=== PATIENT | male | born 1935 | race Caucasian/White ===

== ENCOUNTER 2017-05-01 18:47 | Inpatient (IN) ==
[2017-05-01] MEDS ORDERED: ALBUTEROL/IPRATROPIUM 3 ML NEB RESP TX STA (19:43)
[2017-05-01] MEDS ORDERED: METOCLOPRAMIDE 10 MG/2 ML VIAL IV STA (19:43)
[2017-05-01] MEDS ORDERED: PANTOPRAZOLE 40 MG VIAL IV STA (19:43)
[2017-05-01 19:45] LABS: Basophils # 0.1 10*3/uL (0.0-0.2); Basophils % 0.4 % (0.0-0.8); Eosinophils # 0.1 10*3/uL (0.0-0.87); Eosinophils % 0.3 % (0.00-10.9); Hematocrit 35.6 VOL% (42.0-52.0); Hemoglobin 12.6 GM/DL (14.0-18.0); Immature Granulocytes % 1.3 %; Lymphocytes # 0.8 10*3/uL (1.4-4.0); Lymphocytes % 4.7 % (21.2-54.2); Mean Corpuscular HGB Conc 35.4 GM/DL (32-36); Mean Corpuscular Hemoglobin 31 PG (27-34); Mean Corpuscular Volume 86.8 FL (87-102); Mean Platelet Volume 9.3 FL (9.6-12.0); Monocytes # 1.3 10*3/uL (0.11-0.8); Monocytes % 8.3 % (1.7-12.7); Neutrophils # 13.6 10*3/uL (1.4-7.4); Platelet Count 321 T/CUMM (130-400); Red Cell Distribution Width 12.6 % (9.3-17.3)
--- NOTE | 2017-05-01 19:46 | Emergency Department Note ---
Arrival - Arrival Chief Complaint: Shortness of Breath Stated Complaint: Cant Breathe,Chest Pain ED Nursing Triage Note: C/C short of breath for several days, worse when laying and exertion. CHest pain that started after nistatin meds were completed. Mode of Arrival: Wheelchair Limitations: No Limitations Source: Patient, Family Time Seen by Provider: 05/01/17 19:41 - History of Present Illness HPI Narrative: This 81-year-old white male presents with abrupt progressive shortness of breath worse when laying down or exerting himself. Associated with this has been wheezing and increased midepigastric pain of his chronic reflux disease. In fact, the patient had a new drug given to him yesterday by Dr. Moseley for his reflux and he has some concerned that this is made matters worse. However, he does not have a history of COPD and asthma nor does he have a history of congestive heart failure. Prior to 3 days ago he has never experienced symptoms such as this. In this regard he denies hemoptysis, chills, fever, sputum production, or pleuritic type chest pain. Currently he appears uncomfortable but in no acute medical distress. Onset (ago): day(s) (Patient presents 3 days post onset of symptoms) Allergies/Adverse Reactions: Allergies Allergy/AdvReac Type Severity Reaction Status Date / Time gabapentin [From Neurontin] Allergy Severe Diarrhea Verified 05/01/17 19:05 latex AdvReac Redness of Verified 05/01/17 19:05 Skin Home Medications: Home Medications Medication Instructions Recorded Confirmed Type Amitriptyline [Elavil] 50 mg PO BEDTIME 11/30/16 05/01/17 History Carvedilol 6.25 mg PO BID 11/30/16 05/01/17 History Chlorthalidone 25 mg PO QAM 11/30/16 05/01/17 History Finasteride 5 mg PO QPM 11/30/16 05/01/17 History Pantoprazole Tab [Protonix Tab] 40 mg PO BID 11/30/16 05/01/17 History Tamsulosin [Flomax] 0.4 mg PO PC SUPPER 11/30/16 05/01/17 History amLODIPine [Norvasc] 5 mg PO BID 11/30/16 05/01/17 History Acetaminophen Tab [Tylenol Tab] 325 - 650 mg PO QOTHER DAY PRN 03/30/17 History Docusate Sodium 100 mg PO BEDTIME 03/30/17 05/01/17 History Multivitamin [Multivitamins] 1 each PO QAM 03/30/17 05/01/17 History Sucralfate Tab [Carafate Tab] 1 gm PO QID 05/01/17 05/01/17 History Review of System - Review of System 12 point system: reviewed and no additional remarkable complaints except as stated - Review of System Constitutional: Present: as per HPI Respiratory: Present: as per HPI Cardiovascular: Present: as per HPI Gastrointestinal: Present: as per HPI Medical,Surgical,& Family Hx - Medical History Cardio: History of: CHF, Hypertension Neurology: History of: TIA Endocrine: No history of: Diabetes Mellitus (IDDM), Diabetes Mellitus (NIDDM) Respiratory: History of: Respiratory Problems (left lung calcification 3.5cm) Genitourinary: History of: Prostate Problems (enlarged) Gastrointestinal: History of: GERD, GI Problems (Hital hernia) Musculoskeletal: History of: Back/Neck Problems (spinal stenosis/scoliosis), Musculoskeletal Problems (feet, left knee) - Surgical History Cardiac Surgeries: Patient Denies: Cardiac Catheterization Orthopedic Surgeries: Surgical HX of;: Orthopedic Surgery (left ankle metal plate) - Social History Smoking Status: Never smoker Frequency of Alcohol Use: None Type of Drug Use: None Exam Physical Examination: GENERAL: Well developed, well nourished elderly white male in no acute distress. HEENT: Normocephalic. No trauma. Moist mucous membranes. EOMI. PERRLA. ENT NML NECK: Supple. No adenopathy. CARDIAC: Regular. No murmurs. Heart rate 84 CHEST: Rare expiratory wheeze. No respiratory distress. O2 sat 96% ABDOMEN: Soft. Midepigastric tenderness. Active bowel sounds. EXTREMITIES: No trauma. Normal ROM. No pedal edema. SKIN: No diaphoresis. No rash. NEURO: Alert. Neuro intact. No focal deficits. Vital Signs: Vital Signs Temperature 97.9 F 05/01/17 18:59 Pulse Rate 72 05/01/17 20:17 Respiratory Rate 18 05/01/17 20:17 Blood Pressure 172/90 05/01/17 18:59 O2 Sat by Pulse Oximetry 99 05/01/17 20:17 Course - Reevaluation(s) Reevaluation #1: Advised patient of evidence of early failure and super infecting bronchitis. For that reason he will be admitted. - Consultations Consultation #1: Discussed with Dr. Moseley who will admit for further evaluation treatment. Results - Labs CBC & BMP: 05/01/17 19:25 05/01/17 19:25 Labs: I reviewed the laboratory and noted the borderline sodium low potassium and elevated white blood cell count. - Diagnostic Findings Procedure: Chest x-ray: image reviewed by me, report reviewed by me ( Cardiomegaly otherwise no acute changes), CT: image reviewed by me, report reviewed by me (No evidence of PTE but evidence of interstitial edema) Disposition Clinical Impression: Pulmonary edema, Bacterial bronchitis Case discussed with: patient, patient's family Disposition: Still a Patient Condition: Guarded Time of Disposition: 23:01
--- NOTE | 2017-05-01 19:59 | XRay Report ---
Exam: XR chest 1V portable Date: 05/01/2017 7:15 PM Indication: Chest pain Comparison: 03/30/2017 Technical: AP Findings: Cardiomegaly is present with a calcified node in the left perihilar region measuring up to approximately 3.6 cm. External cardiac leads oxygen tubing are present. ASVD is present. No obvious pneumothorax or infiltrates or effusions. Impression: 1. Cardiomegaly 2. No acute cardiopulmonary pathology with underlying calcified nodes in the left perihilar region PROCEDURE INTERPRETED AT [facility] DEPARTMENT OF RADIOLOGY Final Report Signed by: Dr. Jacob Alvarado
[2017-05-01 20:03] LABS: Magnesium 1.9 MG/DL (1.8-2.4)
[2017-05-01 20:04] LABS: Albumin 3.5 G/DL (3.4-5.0); Bilirubin,Total 1.3 MG/DL (0.2-1.0); Calcium 8.8 MG/DL (8.5-10.1); Osmolality,Calculated 256.4 MOS/KG (273-304); Potassium 3.3 MMOL/L (3.5-5.1); Total Protein 6.9 G/DL (6.4-8.3)
[2017-05-01 20:05] LABS: INR 1.1; PT Patient Result 11.8 SECS; Partial Thromboplastin Time 37.2 SECS (0-40)
[2017-05-01 20:06] LABS: Troponin I Only 0.015 NG/ML (0.00-0.045)
[2017-05-01] MEDS ORDERED: PANTOPRAZOLE 40 MG VIAL IV ONE (20:06)
[2017-05-01] MEDS ORDERED: METOCLOPRAMIDE 10 MG/2 ML VIAL ONE (20:06)
[2017-05-01 20:10] LABS: Lymphocytes 5 % (20-55); Platelet Estimate Normal; Segmented Neutrophils 88 % (50-85); Total Cells Counted 100
[2017-05-01] MEDS ORDERED: POTASSIUM BICARB EFFERVESCENT 25 MEQ TABLET PO ONE ×2 (20:50→23:32)
[2017-05-01 22:19] LABS: Apearance,Urine CLEAR (Clear); Bilirubin,Urine Negative (Negative); Blood, Urine Negative (Negative); Glucose,Urine (UA) Negative (Negative); Hyaline Casts,Urine 1 /LPF (0-3); Ketones,Urine 5 mg/dL (Negative); Mucus,Urine Occasional /LPF (Occasional); Nitrite,Urine Negative (Negative); Protein,Urine 100 MG/DL; RBC,Urine <1 /HPF (0-4); Urine Color Yellow (Yellow); Urine Specific Gravity 1.018 (1.001-1.035); Urine Urobilinogen < 2.0 EU/DL (0.2-1.0); WBC,Urine <1 /HPF (0-6)
[2017-05-01] MEDS ORDERED: LEVOFLOXACIN INJ 750 MG in PREMIX 1 EACH IV STA (22:34)
[2017-05-01] MEDS ORDERED: ONDANSETRON 4 MG/2 ML VIAL IV PRN (23:02)
[2017-05-01] MEDS ORDERED: LEVOFLOXACIN INJ 150 ML IV ONE (23:32)
[2017-05-02] MEDS: ALBUTEROL/IPRATROPIUM 3 ML NEB RESP TX PRN ×2 (01:45→21:20)
[2017-05-02] MEDS: LEVOFLOXACIN INJ 750 MG in PREMIX 1 EACH IV SCH (01:49)
--- NOTE | 2017-05-02 06:46 | CT Report ---
Exam: CT chest PE study Date: 05/01/2017 8:49 PM Indication: Acute shortness of breath Comparison: Routine chest Technical: Images were obtained from the thoracic inlet through the lung bases with 80 cc of Omnipaque 350 with axial and coronal imaging available for review. Dose reduction was performed with decreasing kv and mA and automated exposure. 3-D MIP images were obtained Findings: The study was initially reviewed by C.. The pulmonary outflow tract, left and right proximal pulmonary arteries, first-order, second-order and third order branches reveal no evidence of pulmonary thromboemboli. The heart is normal in size. Minimal atherosclerotic plaque in the aorta. The lungs are demonstrated with left base pleural effusion atelectatic change with small right pleural effusion also present. Calcified nodes are present in the left aortopulmonic window hilar region. There is a soft tissue density mass in the anterior mediastinum measuring approximate 7 cm x 3 x 7 cm. Scarring is present in the lung bases posteriorly. The bony structures are demonstrated with degenerative spondylosis change present and compression deformity in the lower thoracic lumbar spine junction with the area of vertebral plana suspected in the lowest level. The liver is unremarkable. Spleen reveals granuloma changes. The gallbladder is slightly distended. The pancreas is intact. The adrenal glands are unremarkable. Kidneys are poorly seen. Stomach is incompletely distended Impression: 1. No evidence of pulmonary thromboemboli. 2. 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 Bilateral basilar effusions and atelectatic change minimal pneumonic infiltrate cannot be excluded 4. Calcified mediastinal mass left hilar region measuring up to 3.6 cm 5. Multiple compression fractures lower thoracic upper lumbar spine area. 6. Slightly distended gallbladder without obvious stones 7. Underlying interstitial edema or mild interstitial fibrotic scarring. PROCEDURE INTERPRETED AT [facility] DEPARTMENT OF RADIOLOGY Final Report Signed by: Dr. Jacob Alvarado
--- NOTE | 2017-05-02 06:54 | EKG Report ---
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
[2017-05-02] MEDS: FUROSEMIDE 40 MG/4 ML VIAL IV SCH ×2 (09:03→17:39)
[2017-05-02] MEDS: PANTOPRAZOLE 40 MG TABLET PO SCH ×3 (09:03→22:10)
[2017-05-02] MEDS: CARVEDILOL 6.25 MG TABLET PO SCH ×2 (09:03→22:10)
[2017-05-02] MEDS: POTASSIUM CHLORIDE 20 MEQ TABLET PO SCH (09:03)
[2017-05-02] MEDS: FINASTERIDE 5 MG TABLET PO SCH (09:03)
[2017-05-02] MEDS: TAMSULOSIN 0.4 MG CAPSULE PO SCH (09:03)
--- NOTE | 2017-05-02 09:07 | EKG Report ---
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
[2017-05-02 09:18] LABS: Basophils # 0.1 10*3/uL (0.0-0.2); Basophils % 0.4 % (0.0-0.8); Eosinophils # 0.1 10*3/uL (0.0-0.87); Eosinophils % 0.4 % (0.00-10.9); Hematocrit 34.5 VOL% (42.0-52.0); Hemoglobin 12.1 GM/DL (14.0-18.0); Immature Granulocytes % 1.3 %; Lymphocytes # 0.9 10*3/uL (1.4-4.0); Lymphocytes % 5.9 % (21.2-54.2); Mean Corpuscular HGB Conc 35.1 GM/DL (32-36); Mean Corpuscular Hemoglobin 31 PG (27-34); Mean Corpuscular Volume 88.2 FL (87-102); Mean Platelet Volume 9.4 FL (9.6-12.0); Monocytes # 1.5 10*3/uL (0.11-0.8); Neutrophils # 12.3 10*3/uL (1.4-7.4); Platelet Count 299 T/CUMM (130-400); Red Blood Count 3.91 MC/CUMM (3.8-5.5); Red Cell Distribution Width 12.5 % (9.3-17.3); White Blood Count 15.1 T/CUMM (4-12)
--- NOTE | 2017-05-02 09:30 | Internal Med History&Physical ---
Assessment and Plan (1) Shortness of breath Status: Acute Assessment and plan: 81-year-old male admitted to acute care * Shortness of breath. This has been going on for 3 days. It is associated with orthopnea and a cough. Differential diagnosis includes CHF and or pneumonia. * New onset A. fib. This appears to be new onset. His ventricular rate is relatively controlled. Will check echocardiogram on the patient. We will also check BNP and consult cardiology to evaluate the patient. Will check TSH and magnesium * Anterior mediastinal mass. Will consult pulmonary medicine to evaluate patient. He may need biopsy * Severe GERD. Continue current treatment. Will consult podiatry for the diet recommendation * Hypertension. Blood pressure is stable * Chronic back pain. Stable * Hyponatremia and hypokalemia. Will hold Lasix. Potassium will be replaced. * Discussed with patient and his grandson Current Visit: Yes (2) Mediastinal mass Status: Acute Current Visit: Yes (3) New onset a-fib Status: Acute Current Visit: Yes (4) CHF (congestive heart failure) Status: Acute Current Visit: Yes (5) Hypertension Status: Acute Current Visit: Yes (6) GERD (gastroesophageal reflux disease) Status: Acute Current Visit: Yes History of Present Illness Chief complaint: Shortness of breath. History of present illness: Mr. Chatman is a 81 year old male with history of GERD, spinal stenosis, chronic low back pain, hypertension and osteoarthritis. He presented to the emergency room with 3 day history of shortness of breath on minimal exertion along with orthopnea. He had difficulty lying down without getting short of breath. He also had some mid epigastric pain. He has history of severe reflux. He denies any chest pain. He describes it as a reflux type pain. Denies any fever or chills. He denies any nausea or vomiting. Patient was evaluated in the emergency room with a CT PE. It showed 7 cm left anterior superior mediastinal mass. Patient was also found to be in A. fib. Patient has been having pain off and on for several weeks. He went to the emergency room last month. Patient denies any history of smoking Home Medications Medication Instructions Recorded Confirmed Type Amitriptyline [Elavil] 50 mg PO BEDTIME 11/30/16 05/01/17 History Carvedilol 6.25 mg PO BID 11/30/16 05/01/17 History Chlorthalidone 25 mg PO QAM 11/30/16 05/01/17 History Finasteride 5 mg PO QPM 11/30/16 05/01/17 History Pantoprazole Tab [Protonix Tab] 40 mg PO BID 11/30/16 05/01/17 History Tamsulosin [Flomax] 0.4 mg PO PC SUPPER 11/30/16 05/01/17 History amLODIPine [Norvasc] 5 mg PO BID 11/30/16 05/01/17 History Acetaminophen Tab [Tylenol Tab] 325 - 650 mg PO QOTHER DAY PRN 03/30/17 History Docusate Sodium 100 mg PO BEDTIME 03/30/17 05/01/17 History Multivitamin [Multivitamins] 1 each PO QAM 03/30/17 05/01/17 History Sucralfate Tab [Carafate Tab] 1 gm PO QID 05/01/17 05/01/17 History Allergies Allergy/AdvReac Type Severity Reaction Status Date / Time gabapentin [From Neurontin] Allergy Severe Diarrhea Verified 05/01/17 19:05 latex AdvReac Redness of Verified 05/01/17 19:05 Skin Medical,Surgical,& Family Hx - Medical History Cardio: History of: CHF, Hypertension Neurology: History of: TIA Endocrine: No history of: Diabetes Mellitus (IDDM), Diabetes Mellitus (NIDDM) Respiratory: History of: Respiratory Problems (left lung calcification 3.5cm) Genitourinary: History of: Prostate Problems (enlarged) Gastrointestinal: History of: GERD, GI Problems (Hital hernia) Musculoskeletal: History of: Back/Neck Problems (spinal stenosis/scoliosis), Musculoskeletal Problems (feet, left knee) - Surgical History Cardiac Surgeries: Patient Denies: Cardiac Catheterization Thoracic Surgeries: Patient denies;: Organ Transplant Orthopedic Surgeries: Surgical HX of;: Orthopedic Surgery (left ankle metal plate) - Family History Family History: Reports;: Family Heart Disease, Family Stroke - Social History Smoking Status: Never smoker Frequency of Alcohol Use: None Type of Drug Use: None Marital Status: Lives With:: Spouse Functional capacity: uses cane/walker 12 point system: reviewed and no additional remarkable complaints except as stated (As mentioned in HPI) Exam - Constitutional Vitals: Period Temp Pulse Resp BP Sys/Bah Pulse Ox Last 24 Hr 96.7 F-98.4 F 65-86 18-24 118-172/64-93 95-99 Exam: Examination: GENERAL: NAD. HEENT: PERRLA. EOMI. Mucous membranes are moist. NECK: Neck is supple. No JVD. No carotid bruit. No thyromegaly. CVS: Regular rate and rhythm. S1 and S2 are normal. RESPIRATORY: Lungs are clear. No rales or rhonchi. ABDOMEN: Soft and nontender. Bowel sounds are present. No hepatosplenomegaly. EXT: No edema. Peripheral pulses are present. 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 Cranial nerves II through XII are grossly intact. Motor strength is 5 over 5 both upper and lower extremities. Sensory is intact. Deep tendon reflexes are present. SKIN: Warm and dry. MSK: No obvious deformity. Chronic arthritic changes in her back Results - Labs CBC & BMP: 05/02/17 08:31 05/01/17 19:25 Lab Results: I have reviewed the past 24 hour labs Quality Measures - Stroke Symptom Onset Unknown: No
--- NOTE | 2017-05-02 11:48 | Pulmonology Consult Note ---
Assessment and Plan (1) Mediastinal mass Status: Acute Assessment and plan: Difficult to tell how long this has been present as it would not be visible on plain chest x-ray. I do not think he is having any symptoms referable to this area. My suggestion would be to have a thoracic surgeon look at him. He may want to follow it, get it needle biopsied, or do a mediastinoscopy. This is not an area of the chest that I could get to with a bronchoscope. The differential diagnosis for an anterior mediastinal mass would be thymoma, teratoma, substernal thyroid. Of those I think a teratoma would be quite unlikely. The lesion does not appear to be continuous with his thyroid. It does not appear to be adenopathy. I would workup his cardiac situation first as I think this is the primary cause of his symptoms. Ask Dr. Goyal to review the CT and patient on Thursday Current Visit: Yes (2) New onset a-fib Status: Acute Assessment and plan: Being addressed by cardiology. Current Visit: Yes (3) CHF (congestive heart failure) Status: Acute Assessment and plan: Certainly the small pleural effusions, basilar crackles, dyspnea on exertion, orthopnea, elevated BNP of close to 400 all would be suggestive of congestive heart failure. Cardiology is going to work him up to find the cause for this. This should be done prior to any evaluation of the anterior mediastinal mass. Current Visit: Yes History of Present Illness Chief complaint: Shortness of breath History of present illness: Mr. Chatman is a 81 year old male who came in with about 3 days of shortness of breath including wheezing orthopnea and a cough. He was found to have atrial fibrillation. He has a BNP of 393. This been no echo done. His CT scan showed no evidence of a pulmonary embolus but did show small bilateral pleural effusions and some basilar interstitial infiltrate or compression. Incidental finding is an anterior mediastinal mass which measures 3 x 7 x 7 cm. The patient is really not having any pain in this area. It is not visible on plain chest x-ray and it is uncertain how long it has been there. Home Medications Medication Instructions Recorded Confirmed Type Amitriptyline [Elavil] 50 mg PO BEDTIME 11/30/16 05/01/17 History Carvedilol 6.25 mg PO BID 11/30/16 05/01/17 History Chlorthalidone 25 mg PO QAM 11/30/16 05/01/17 History Finasteride 5 mg PO QPM 11/30/16 05/01/17 History Pantoprazole Tab [Protonix Tab] 40 mg PO BID 11/30/16 05/01/17 History Tamsulosin [Flomax] 0.4 mg PO PC SUPPER 11/30/16 05/01/17 History amLODIPine [Norvasc] 5 mg PO BID 11/30/16 05/01/17 History Acetaminophen Tab [Tylenol Tab] 325 - 650 mg PO QOTHER DAY PRN 03/30/17 History Docusate Sodium 100 mg PO BEDTIME 03/30/17 05/01/17 History Multivitamin [Multivitamins] 1 each PO QAM 03/30/17 05/01/17 History Sucralfate Tab [Carafate Tab] 1 gm PO QID 05/01/17 05/01/17 History Allergies Allergy/AdvReac Type Severity Reaction Status Date / Time gabapentin [From Neurontin] Allergy Severe Diarrhea Verified 05/01/17 19:05 latex AdvReac Redness of Verified 05/01/17 19:05 Skin 12 point system: reviewed and no additional remarkable complaints except as stated - Constitutional Constitutional: Present: fatigue - Cardiovascular Cardiovascular: Present: dyspnea, dyspnea on exertion, edema, orthopnea - Respiratory Respiratory: Present: cough, dyspnea, dyspnea on exertion, wheezing Exam (Pulmonay) H&P - Constitutional Vitals: Period Temp Pulse Resp BP Sys/Bah Pulse Ox Last 24 Hr 96.7 F-98.4 F 65-86 18-24 118-172/64-93 95-99 Exam: Patient is alert and oriented. Vital signs are normal. Pulse is somewhat irregular. HEENT: Pupils react to light. Throat is clear. Neck supple no bruits. He does have some mild jugular distention. I do not feel an enlarged thyroid. Chest reveals bibasilar crackles. Heart irregular without murmur. Abdomen soft nontender no masses. Bowel sounds present. Extremities she has trace to 1+ peripheral edema. Calves are nontender. Medical,Surgical,& Family Hx - Medical History Cardio: History of: CHF, Hypertension Neurology: History of: TIA Endocrine: No history of: Diabetes Mellitus (IDDM), Diabetes Mellitus (NIDDM) Respiratory: History of: Respiratory Problems (left lung calcification 3.5cm) Genitourinary: History of: Prostate Problems (enlarged) Gastrointestinal: History of: GERD, GI Problems (Hital hernia) Musculoskeletal: History of: Back/Neck Problems (spinal stenosis/scoliosis), Musculoskeletal Problems (feet, left knee) - Surgical History Cardiac Surgeries: Patient Denies: Cardiac Catheterization Thoracic Surgeries: Patient denies;: Organ Transplant Orthopedic Surgeries: Surgical HX of;: Orthopedic Surgery (left ankle metal plate) - Family History Family History: Reports;: Family Heart Disease, Family Stroke - Social History Smoking Status: Never smoker Frequency of Alcohol Use: None Type of Drug Use: None Results - Labs CBC & BMP: 05/02/17 08:31 05/01/17 19:25 Lab Results: I have reviewed the past 24 hour labs - Diagnostic Findings Procedure: Chest x-ray: image reviewed by me (Calcified left hilar lesion which is old uncertain. Upper mediastinum may be slightly widened.), CT - chest: image reviewed by me (Small bilateral pleural effusions with interstitial infiltrates in the bases. Anterior mediastinal mass. It is very smooth. 7 x 3 x 7 cm it measures.) Quality Measures - Stroke Symptom Onset Unknown: No
[2017-05-02] MEDS: SUCRALFATE 1 GM TABLET PO SCH ×3 (13:57→22:09)
--- NOTE | 2017-05-02 14:05 | Cardiology Consult Note ---
Assessment and Plan (1) Shortness of breath Status: Acute Current Visit: Yes (2) Mediastinal mass Status: Acute Current Visit: Yes (3) New onset a-fib Status: Acute Current Visit: Yes (4) Hypertension Status: Chronic Current Visit: Yes History of Present Illness - Data of Consult Patient: new to practice Consult date: 05/02/17 Requesting Physician: Jacob Sierra - Consult Narrative Reason for consult: A. 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 Chatman is a 81 year old male without a prior cardiac history, with risk factors significant for hypertension and advanced age. He presents with complaints of shortness of breath. He has had a decline in his exercise tolerance with increasing dyspnea on exertion over the preceding couple of months. However, this week his symptoms escalated, such that he became short of breath with performing any activity, so he came to the emergency room for further evaluation and treatment. He does occasionally get a chest discomfort which he attributes to his "hiatal hernia". This seems to be somewhat positional. He is unable to lay recumbent, and has not been able to do this for some time, because he feels short of breath when he does so. He has not necessarily had lower extremity edema. He is not aware of any palpitations. He has not noticed any fevers, chills, cough or other acute illness. He has not had unexplained weight loss. He denies any melena, bright red blood per rectum. Upon admission he is diagnosed with possible atrial fibrillation with a controlled ventricular response. The ECGs are somewhat difficult to discern, but he does seem to have an irregular rhythm. He has also been diagnosed with a mediastinal mass. His BNP is not greater than 400, so was not specific for heart failure. Impression and plan: 1. Shortness of breath-this may be multifactorial. 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 He will need to undergo further cardiac workup with cardiac catheterization given the severity of the symptoms. We are going to need to plan this timing with Dr. Goyal since he will need workup for his mediastinal mass probably. This does not really appear to be a significant heart failure since his BNP is less than 400, and he does not seem to have significant edema on exam. 2. Mediastinal mass-we will consult Dr. Goyal. 3. Atrial fibrillation-I am going to repeat his chest x-ray ECG. We will give him a shot of Lovenox. We will need to determine what his long-term anticoagulation will be. He does have a mild microcytic anemia and we will need to work this up as well. 4. Hypertension-chronic, stable. 5. Anemia-this is mildly microcytic and we will need to work this up if we are considering cardiac catheterization and possible antiplatelet therapy and/or anticoagulation for his atrial fibrillation. I have personally discussed this case with Drs. Kelsey and Jay Jay. CC: Chapito Moseley MD - Home Medications and Allergies Home Medications: Home Medications Medication Instructions Recorded Confirmed Type Amitriptyline [Elavil] 50 mg PO BEDTIME 11/30/16 05/01/17 History Carvedilol 6.25 mg PO BID 11/30/16 05/01/17 History Chlorthalidone 25 mg PO QAM 11/30/16 05/01/17 History Finasteride 5 mg PO QPM 11/30/16 05/01/17 History Pantoprazole Tab [Protonix Tab] 40 mg PO BID 11/30/16 05/01/17 History Tamsulosin [Flomax] 0.4 mg PO PC SUPPER 11/30/16 05/01/17 History amLODIPine [Norvasc] 5 mg PO BID 11/30/16 05/01/17 History Acetaminophen Tab [Tylenol Tab] 325 - 650 mg PO QOTHER DAY PRN 03/30/17 History Docusate Sodium 100 mg PO BEDTIME 03/30/17 05/01/17 History Multivitamin [Multivitamins] 1 each PO QAM 03/30/17 05/01/17 History Sucralfate Tab [Carafate Tab] 1 gm PO QID 05/01/17 05/01/17 History Allergies/Adverse Reactions: Allergies Allergy/AdvReac Type Severity Reaction Status Date / Time gabapentin [From Neurontin] Allergy Severe Diarrhea Verified 05/01/17 19:05 latex AdvReac Redness of Verified 05/01/17 19:05 Skin 12 point system: reviewed and no additional remarkable complaints except as stated Medical,Surgical,& Family Hx - Medical History Cardio: History of: Hypertension Neurology: History of: TIA Endocrine: No history of: Diabetes Mellitus (IDDM), Diabetes Mellitus (NIDDM) Respiratory: History of: Respiratory Problems (left lung calcification 3.5cm) Genitourinary: History of: Prostate Problems (enlarged) Gastrointestinal: History of: GERD, GI Problems (Hital hernia) Musculoskeletal: History of: Back/Neck Problems (spinal stenosis/scoliosis), Musculoskeletal Problems (feet, left knee) - Surgical History Cardiac Surgeries: Patient Denies: Cardiac Catheterization Thoracic Surgeries: Patient denies;: Organ Transplant Orthopedic Surgeries: Surgical HX of;: Orthopedic Surgery (left ankle metal plate) - Family History Family History: Reports;: Family Heart Disease, Family Stroke - Social History Smoking Status: Never smoker Frequency of Alcohol Use: None Type of Drug Use: None Marital Status: Lives With:: Spouse Functional capacity: independent ambulation Physical Examination Vital Signs Temp Pulse Resp BP Pulse Ox 97.9 F 86 20 172/90 96 05/01/17 18:59 05/01/17 18:59 05/01/17 18:59 05/01/17 18:59 05/01/17 18:59 Exam: General appearance: normal weight, no acute distress - Head Head exam: Present: normal inspection, normocephalic, atraumatic. Absent: hematoma, laceration - Eye Eye exam: Present: EOMI. Absent: conjunctival injection, nystagmus, periorbital swelling, scleral icterus, laceration to eyelids Pupils: Present: PERRL. Absent: constricted, dilated, fixed, irregular, unequal - ENT ENT exam: Present: normal exam, normal external ear exam - Neck Neck exam: Present: normal inspection. Absent: lymphadenopathy, meningismus, tenderness, thyromegaly - Respiratory Respiratory exam: Present: Crackles in the bilateral bases.. Absent: accessory muscle use, chest wall tenderness - Cardiovascular Cardiovascular exam: Present: Subtly irregularly irregular rate and rhythm. Absent: carotid bruit, gallop, JVD, rubs - GI/Abdominal GI/Abdominal exam: Present: normal bowel sounds, soft. Absent: distended, firm , guarding, hernia, mass, tenderness, rebound. - Extremities Exam Extremities exam: Present: decreased pulses. Absent: calf tenderness, edema - Back Exam Back exam: Present: normal inspection. Absent: muscle spasm, vertebral tenderness - Neurological Exam Neurological exam: Present: alert, oriented X3, grossly intact without resting or intention tremor - Psychiatric Psychiatric exam: Present: normal affect, normal mood - Skin Skin exam: Present: normal color, warm, dry, intact. Absent: cyanosis, diaphoretic, rash, urticaria Result/EKG - Labs CBC & BMP: 05/02/17 08:31 05/01/17 19:25 Lab Results: I have reviewed the past 24 hour labs Labs: Laboratory Results - last 24 hr 05/01/17 05/01/17 05/01/17 19:25 19:25 19:25 WBC 16.0 H RBC 4.10 Hgb 12.6 L Hct 35.6 L MCV 86.8 L MCH 31 MCHC 35.4 RDW 12.6 Plt Count 321 MPV 9.3 L Neut % (Auto) 85.0 H Lymph % (Auto) 4.7 L [place] % (Auto) 8.3 Eos % (Auto) 0.3 Baso % (Auto) 0.4 Neut # (Auto) 13.6 H Lymph # (Auto) 0.8 L [place] # (Auto) 1.3 H Eos # (Auto) 0.1 Baso # (Auto) 0.1 Total Counted 100 Immature Gran % 1.3 Nucleated RBC % 0.0 Immature Gran # 0.20 Segmented Neutrophils 88 H Lymphocytes 5 L Monocytes 7 Nucleated RBCs # 0.00 Platelet Estimate Normal Immature Plt Fraction 0.0 INR PT Patient/Control Mix D-Dimer, Quantitative Circ Anticoag PTT Sodium 126 L Potassium 3.3 L Chloride 91 L Carbon Dioxide 22 Anion Gap 16.3 H BUN 20 H Creatinine 1.20 GFR Calculation 72 BUN/Creatinine Ratio 16.00 Glucose 114 H Calculated Osmolality 256.4 L Calcium 8.8 Magnesium Total Bilirubin 1.30 H AST 36 ALT 30 Alkaline Phosphatase 93 Total Creatine Kinase 82 CK-MB (CK-2) 1.7 Troponin I 0.015 B-Natriuretic Peptide Total Protein 6.9 Albumin 3.5 Globulin 3.4 Albumin/Globulin Ratio 1.0 L Amylase Lipase Urine Color Urine Appearance Urine pH Ur Specific [place] Urine Protein Urine Glucose (UA) Urine Ketones Urine Blood Urine Nitrate Urine Bilirubin Urine Urobilinogen Urine Leukocytes Urine RBC Urine WBC Hyaline Casts Urine Mucus Ur Culture Indicated? 05/01/17 05/01/17 05/01/17 19:25 19:25 19:34 WBC RBC Hgb Hct MCV MCH MCHC RDW Plt Count MPV Neut % (Auto) Lymph % (Auto) [place] % (Auto) Eos % (Auto) Baso % (Auto) Neut # (Auto) Lymph # (Auto) [place] # (Auto) Eos # (Auto) Baso # (Auto) Total Counted Immature Gran % Nucleated RBC % Immature Gran # Segmented Neutrophils Lymphocytes Monocytes Nucleated RBCs # Platelet Estimate Immature Plt Fraction INR 1.1 PT Patient/Control Mix 11.8 D-Dimer, Quantitative 1.4 Circ Anticoag PTT 37.2 Sodium Potassium Chloride Carbon Dioxide Anion Gap BUN Creatinine GFR Calculation BUN/Creatinine Ratio Glucose Calculated Osmolality Calcium Magnesium Total Bilirubin AST ALT Alkaline Phosphatase Total Creatine Kinase CK-MB (CK-2) Troponin I B-Natriuretic Peptide Total Protein Albumin Globulin Albumin/Globulin Ratio Amylase 25 Lipase Urine Color Urine Appearance Urine pH Ur Specific [place] Urine Protein Urine Glucose (UA) Urine Ketones Urine Blood Urine Nitrate Urine Bilirubin Urine Urobilinogen Urine Leukocytes Urine RBC Urine WBC Hyaline Casts Urine Mucus Ur Culture Indicated? 05/01/17 05/01/17 05/02/17 19:34 22:00 08:31 WBC 15.1 H RBC 3.91 Hgb 12.1 L Hct 34.5 L MCV 88.2 MCH 31 MCHC 35.1 RDW 12.5 Plt Count 299 MPV 9.4 L Neut % (Auto) 82.0 H Lymph % (Auto) 5.9 L [place] % (Auto) 10.0 Eos % (Auto) 0.4 Baso % (Auto) 0.4 Neut # (Auto) 12.3 H Lymph # (Auto) 0.9 L [place] # (Auto) 1.5 H Eos # (Auto) 0.1 Baso # (Auto) 0.1 Total Counted Immature Gran % 1.3 Nucleated RBC % 0.0 Immature Gran # 0.20 Segmented Neutrophils Lymphocytes Monocytes Nucleated RBCs # 0.00 Platelet Estimate Immature Plt Fraction 0.0 INR PT Patient/Control Mix D-Dimer, Quantitative Circ Anticoag PTT Sodium Potassium Chloride Carbon Dioxide Anion Gap BUN Creatinine GFR Calculation BUN/Creatinine Ratio Glucose Calculated Osmolality Calcium Magnesium 1.9 Total Bilirubin AST ALT Alkaline Phosphatase Total Creatine Kinase CK-MB (CK-2) Troponin I B-Natriuretic Peptide Total Protein Albumin Globulin Albumin/Globulin Ratio Amylase Lipase 76.0 Urine Color Yellow Urine Appearance Clear Urine pH 5.0 Ur Specific [place] 1.018 Urine Protein 100 Urine Glucose (UA) Negative Urine Ketones 5 Urine Blood Negative Urine Nitrate Negative Urine Bilirubin Negative Urine Urobilinogen < 2.0 H Urine Leukocytes Negative Urine RBC <1 Urine WBC <1 Hyaline Casts 1 Urine Mucus Occasional Ur Culture Indicated? Not indicated 05/02/17 08:31 WBC RBC Hgb Hct MCV MCH MCHC RDW Plt Count MPV Neut % (Auto) Lymph % (Auto) [place] % (Auto) Eos % (Auto) Baso % (Auto) Neut # (Auto) Lymph # (Auto) [place] # (Auto) Eos # (Auto) Baso # (Auto) Total Counted Immature Gran % Nucleated RBC % Immature Gran # Segmented Neutrophils Lymphocytes Monocytes Nucleated RBCs # Platelet Estimate Immature Plt Fraction INR PT Patient/Control Mix D-Dimer, Quantitative Circ Anticoag PTT Sodium Potassium Chloride Carbon Dioxide Anion Gap BUN Creatinine GFR Calculation BUN/Creatinine Ratio Glucose Calculated Osmolality Calcium Magnesium Total Bilirubin AST ALT Alkaline Phosphatase Total Creatine Kinase CK-MB (CK-2) Troponin I B-Natriuretic Peptide 393 H Total Protein Albumin Globulin Albumin/Globulin Ratio Amylase Lipase Urine Color Urine Appearance Urine pH Ur Specific [place] Urine Protein Urine Glucose (UA) Urine Ketones Urine Blood Urine Nitrate Urine Bilirubin Urine Urobilinogen Urine Leukocytes Urine RBC Urine WBC Hyaline Casts Urine Mucus Ur Culture Indicated? - Diagnostic Findings Procedure: Chest x-ray: report reviewed by me, CT - chest: report reviewed by me - EKG EKG results: interpreted by me (Indeterminate) Quality Measures - Stroke Symptom Onset Unknown: No
--- NOTE | 2017-05-02 17:05 | Cardiothoracic Consult ---
Assessment and Plan - Time spent with patient Time spent with patient: Greater than 30 minutes (1) Mediastinal mass Status: Acute Assessment and plan: 81-year-old male with shortness of breath and newly diagnosed mediastinal mass. 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 It is unlikely that this is the reason for the shortness of breath. I do believe it could be cardiac in origin. I discussed with Dr. Simon I think we should proceed with a left heart cath and possibly an echo to evaluate myocardial function. If he requires PCI, I would agree to proceed with that and his definitive management for his pericardial mass can be delayed to the point where we could stop the Plavix. If he requires any other surgical intervention for any cardiac issue I could proceed with that and remove the mass through the same sternotomy incision. These options were related to Dr. Simon and the family and the patient and they are all in agreement with the plan. I will continue to follow. Current Visit: Yes History of Present Illness - Data of Consult Patient: new to practice Consult date: 05/02/17 - Consult Narrative Reason for consult: SOB with mediastinal mass History of present illness: Mr. Chatman is a 81 year old male who noted that he has severe shortness of breath for the past week. Prior to this past week he never had shortness of breath. The patient does have problems with his joints and spinal stenosis requiring him to use canes and a motorized chair however he was active otherwise without any problems breathing or cardiac issues. He did have one episode of chest pain more than 30 years ago which turned out to be negative for cardiac workup. He had a CT scan showing a mediastinal mass. CC: Chapito Moseley MD - Home Medications and Allergies Home Medications: Home Medications Medication Instructions Recorded Confirmed Type Amitriptyline [Elavil] 50 mg PO BEDTIME 11/30/16 05/01/17 History Carvedilol 6.25 mg PO BID 11/30/16 05/01/17 History Chlorthalidone 25 mg PO QAM 11/30/16 05/01/17 History Finasteride 5 mg PO QPM 11/30/16 05/01/17 History Pantoprazole Tab [Protonix Tab] 40 mg PO BID 11/30/16 05/01/17 History Tamsulosin [Flomax] 0.4 mg PO PC SUPPER 11/30/16 05/01/17 History amLODIPine [Norvasc] 5 mg PO BID 11/30/16 05/01/17 History Acetaminophen Tab [Tylenol Tab] 325 - 650 mg PO QOTHER DAY PRN 03/30/17 History Docusate Sodium 100 mg PO BEDTIME 03/30/17 05/01/17 History Multivitamin [Multivitamins] 1 each PO QAM 03/30/17 05/01/17 History Sucralfate Tab [Carafate Tab] 1 gm PO QID 05/01/17 05/01/17 History Allergies/Adverse Reactions: Allergies Allergy/AdvReac Type Severity Reaction Status Date / Time gabapentin [From Neurontin] Allergy Severe Diarrhea Verified 05/01/17 19:05 latex AdvReac Redness of Verified 05/01/17 19:05 Skin 12 point system: reviewed and no additional remarkable complaints except as stated (HPI) Medical,Surgical,& Family Hx - Medical History Cardio: History of: CHF, Hypertension Neurology: History of: TIA Endocrine: No history of: Diabetes Mellitus (IDDM), Diabetes Mellitus (NIDDM) Respiratory: History of: Respiratory Problems (left lung calcification 3.5cm) Genitourinary: History of: Prostate Problems (enlarged) Gastrointestinal: History of: GERD, GI Problems (Hital hernia) Musculoskeletal: History of: Back/Neck Problems (spinal stenosis/scoliosis), Musculoskeletal Problems (feet, left knee) - Surgical History Cardiac Surgeries: Patient Denies: Cardiac Catheterization Thoracic Surgeries: Patient denies;: Organ Transplant Orthopedic Surgeries: Surgical HX of;: Orthopedic Surgery (left ankle metal plate) - Family History Family History: Reports;: Family Heart Disease, Family Stroke - Social History Smoking Status: Never smoker Frequency of Alcohol Use: None Type of Drug Use: None Physical Examination Vital Signs Temp Pulse Resp BP Pulse Ox 97.9 F 86 20 172/90 96 05/01/17 18:59 05/01/17 18:59 05/01/17 18:59 05/01/17 18:59 05/01/17 18:59 General: Present: Appears Well HEENT: Present: PERRL Neck: Present: Supple Neck Cardiac: Present: Reg Rate and Rhythm Lungs: Present: Bibasilar Rales Neuro: Present: Cranial Nerve 2-12 Intact Abdomen: Present: Soft, Active Bowel Sounds Result/EKG - Labs CBC & BMP: 05/02/17 08:31 05/01/17 19:25 Labs: Laboratory Results - last 24 hr 05/01/17 05/01/17 05/01/17 19:25 19:25 19:25 WBC 16.0 H RBC 4.10 Hgb 12.6 L Hct 35.6 L MCV 86.8 L MCH 31 MCHC 35.4 RDW 12.6 Plt Count 321 MPV 9.3 L Neut % (Auto) 85.0 H Lymph % (Auto) 4.7 L [place] % (Auto) 8.3 Eos % (Auto) 0.3 Baso % (Auto) 0.4 Neut # (Auto) 13.6 H Lymph # (Auto) 0.8 L [place] # (Auto) 1.3 H Eos # (Auto) 0.1 Baso # (Auto) 0.1 Total Counted 100 Immature Gran % 1.3 Nucleated RBC % 0.0 Immature Gran # 0.20 Segmented Neutrophils 88 H Lymphocytes 5 L Monocytes 7 Nucleated RBCs # 0.00 Platelet Estimate Normal Immature Plt Fraction 0.0 INR PT Patient/Control Mix D-Dimer, Quantitative Circ Anticoag PTT Sodium 126 L Potassium 3.3 L Chloride 91 L Carbon Dioxide 22 Anion Gap 16.3 H BUN 20 H Creatinine 1.20 GFR Calculation 72 BUN/Creatinine Ratio 16.00 Glucose 114 H Calculated Osmolality 256.4 L Calcium 8.8 Magnesium Total Bilirubin 1.30 H AST 36 ALT 30 Alkaline Phosphatase 93 Total Creatine Kinase 82 CK-MB (CK-2) 1.7 Troponin I 0.015 B-Natriuretic Peptide Total Protein 6.9 Albumin 3.5 Globulin 3.4 Albumin/Globulin Ratio 1.0 L Amylase Lipase Urine Color Urine Appearance Urine pH Ur Specific [place] Urine Protein Urine Glucose (UA) Urine Ketones Urine Blood Urine Nitrate Urine Bilirubin Urine Urobilinogen Urine Leukocytes Urine RBC Urine WBC Hyaline Casts Urine Mucus Ur Culture Indicated? 05/01/17 05/01/17 05/01/17 19:25 19:25 19:34 WBC RBC Hgb Hct MCV MCH MCHC RDW Plt Count MPV Neut % (Auto) Lymph % (Auto) [place] % (Auto) Eos % (Auto) Baso % (Auto) Neut # (Auto) Lymph # (Auto) [place] # (Auto) Eos # (Auto) Baso # (Auto) Total Counted Immature Gran % Nucleated RBC % Immature Gran # Segmented Neutrophils Lymphocytes Monocytes Nucleated RBCs # Platelet Estimate Immature Plt Fraction INR 1.1 PT Patient/Control Mix 11.8 D-Dimer, Quantitative 1.4 Circ Anticoag PTT 37.2 Sodium Potassium Chloride Carbon Dioxide Anion Gap BUN Creatinine GFR Calculation BUN/Creatinine Ratio Glucose Calculated Osmolality Calcium Magnesium Total Bilirubin AST ALT Alkaline Phosphatase Total Creatine Kinase CK-MB (CK-2) Troponin I B-Natriuretic Peptide Total Protein Albumin Globulin Albumin/Globulin Ratio Amylase 25 Lipase Urine Color Urine Appearance Urine pH Ur Specific [place] Urine Protein Urine Glucose (UA) Urine Ketones Urine Blood Urine Nitrate Urine Bilirubin Urine Urobilinogen Urine Leukocytes Urine RBC Urine WBC Hyaline Casts Urine Mucus Ur Culture Indicated? 05/01/17 05/01/17 05/02/17 19:34 22:00 08:31 WBC 15.1 H RBC 3.91 Hgb 12.1 L Hct 34.5 L MCV 88.2 MCH 31 MCHC 35.1 RDW 12.5 Plt Count 299 MPV 9.4 L Neut % (Auto) 82.0 H Lymph % (Auto) 5.9 L [place] % (Auto) 10.0 Eos % (Auto) 0.4 Baso % (Auto) 0.4 Neut # (Auto) 12.3 H Lymph # (Auto) 0.9 L [place] # (Auto) 1.5 H Eos # (Auto) 0.1 Baso # (Auto) 0.1 Total Counted Immature Gran % 1.3 Nucleated RBC % 0.0 Immature Gran # 0.20 Segmented Neutrophils Lymphocytes Monocytes Nucleated RBCs # 0.00 Platelet Estimate Immature Plt Fraction 0.0 INR PT Patient/Control Mix D-Dimer, Quantitative Circ Anticoag PTT Sodium Potassium Chloride Carbon Dioxide Anion Gap BUN Creatinine GFR Calculation BUN/Creatinine Ratio Glucose Calculated Osmolality Calcium Magnesium 1.9 Total Bilirubin AST ALT Alkaline Phosphatase Total Creatine Kinase CK-MB (CK-2) Troponin I B-Natriuretic Peptide Total Protein Albumin Globulin Albumin/Globulin Ratio Amylase Lipase 76.0 Urine Color Yellow Urine Appearance Clear Urine pH 5.0 Ur Specific [place] 1.018 Urine Protein 100 Urine Glucose (UA) Negative Urine Ketones 5 Urine Blood Negative Urine Nitrate Negative Urine Bilirubin Negative Urine Urobilinogen < 2.0 H Urine Leukocytes Negative Urine RBC <1 Urine WBC <1 Hyaline Casts 1 Urine Mucus Occasional Ur Culture Indicated? Not indicated 05/02/17 08:31 WBC RBC Hgb Hct MCV MCH MCHC RDW Plt Count MPV Neut % (Auto) Lymph % (Auto) [place] % (Auto) Eos % (Auto) Baso % (Auto) Neut # (Auto) Lymph # (Auto) [place] # (Auto) Eos # (Auto) Baso # (Auto) Total Counted Immature Gran % Nucleated RBC % Immature Gran # Segmented Neutrophils Lymphocytes Monocytes Nucleated RBCs # Platelet Estimate Immature Plt Fraction INR PT Patient/Control Mix D-Dimer, Quantitative Circ Anticoag PTT Sodium Potassium Chloride Carbon Dioxide Anion Gap BUN Creatinine GFR Calculation BUN/Creatinine Ratio Glucose Calculated Osmolality Calcium Magnesium Total Bilirubin AST ALT Alkaline Phosphatase Total Creatine Kinase CK-MB (CK-2) Troponin I B-Natriuretic Peptide 393 H Total Protein Albumin Globulin Albumin/Globulin Ratio Amylase Lipase Urine Color Urine Appearance Urine pH Ur Specific [place] Urine Protein Urine Glucose (UA) Urine Ketones Urine Blood Urine Nitrate Urine Bilirubin Urine Urobilinogen Urine Leukocytes Urine RBC Urine WBC Hyaline Casts Urine Mucus Ur Culture Indicated? Quality Measures - Stroke Symptom Onset Unknown: No
--- NOTE | 2017-05-02 20:23 | ECHO Report ---
Mary Chatman Exam Date: 05/02/2017 11:08 Referring Physician: Technologist: Morelia Barkley RDCS Age: 81 Ht (in): 74 Wt (lb): 222 Gender: M Exam Location: [facility] Echo Indications: Shortness of breath, Orthopnea, Heart failure, unspecified, Cough, Atrial fibrillation, Essential (primary) hypertension, GERD, Anterior medistinal mass BP: 120 / 63 HR: 60 Rhythm: Atrial fibrillation Technical Quality: Fair IMPRESSIONS Normal LV systolic and diastolic function, ejection fraction 55%. Mild concentric left ventricular hypertrophy. Mild biatrial enlargement. Mild right ventricular dilation. Mild mitral, tricuspid and pulmonic regurgitation. Aortic sclerosis without stenosis. MEASUREMENTS (Male / Female) Normal Values 2D ECHO LV Diastolic Diameter PLAX 5.1 cm 4.2 - 5.9 / 3.9 - 5.3 cm LV Systolic Diameter PLAX 2.9 cm LV Fractional Shortening PLAX 43.5 % IVS Diastolic Thickness 1.2 cm 0.6 - 1.0 / 0.6 - 0.9 cm LVPW Diastolic Thickness 1.2 cm 0.6 - 1.0 / 0.6 - 0.9 cm RV Internal Dim ED PLAX 3.5 cm Aortic Root Diameter 3.7 cm LA Systolic Diameter LX 4.9 cm 3.0 - 4.0 / 2.7 - 3.8 cm DOPPLER TR Peak Velocity 246.0 cm/s TR Peak Gradient 24.2 mmHg FINDINGS Left Ventricle Normal left ventricular cavity size. Mild left ventricular hypertrophy. Left ventricular ejection fraction is estimated at 55 %. Right Ventricle The right ventricle is normal in size and function. Right Atrium The right atrium is mildly enlarged. Left Atrium The left atrium is mildly enlarged. Mitral Valve Morphologically normal mitral valve. Mild mitral valve regurgitation. Aortic Valve Mild aortic valve sclerosis without stenosis or regurgitation. Tricuspid Valve Morphologically normal tricuspid valve. Mild tricuspid valve regurgitation. Tricuspid regurgitation velocities suggest a PAP of 34 mmHg. Pulmonic Valve Morphologically normal pulmonic valve. [id number] pulmonary valve regurgitation. Pericardium Normal pericardium without effusion. Aorta Normal ascending aorta dimension. Arielle Simon MD (Electronically Signed) Final Date: 02 May 2017 20:21
[2017-05-02] MEDS: DOCUSATE SODIUM 100 MG CAPSULE PO SCH (22:09)
[2017-05-02] MEDS: AMITRIPTYLINE 50 MG TABLET PO SCH (22:09)
[2017-05-03] MEDS: ACETAMINOPHEN 500 MG TABLET PO PRN ×2 (00:36→14:50)
[2017-05-03] MEDS: LEVOFLOXACIN INJ 750 MG in PREMIX 1 EACH IV SCH (00:38)
[2017-05-03 05:22] LABS: Basophils # 0.1 10*3/uL (0.0-0.2); Basophils % 0.7 % (0.0-0.8); Eosinophils # 0.1 10*3/uL (0.0-0.87); Eosinophils % 0.5 % (0.00-10.9); Hematocrit 33.4 VOL% (42.0-52.0); Hemoglobin 11.7 GM/DL (14.0-18.0); Immature Granulocytes % 1.5 %; Immature Granulocytes Absolute 0.19 #; Lymphocytes % 7.6 % (21.2-54.2); Mean Corpuscular Hemoglobin 31 PG (27-34); Mean Corpuscular Volume 87.9 FL (87-102); Mean Platelet Volume 9.6 FL (9.6-12.0); Monocytes # 1.1 10*3/uL (0.11-0.8); Monocytes % 8.8 % (1.7-12.7); Neutrophils # 10.5 10*3/uL (1.4-7.4); Neutrophils % 80.9 % (38.7-73.9); Platelet Count 342 T/CUMM (130-400); Red Cell Distribution Width 12.3 % (9.3-17.3)
[2017-05-03 05:31] LABS: Calcium 9.1 MG/DL (8.5-10.1); Osmolality,Calculated 265.8 MOS/KG (273-304); Potassium 3.3 MMOL/L (3.5-5.1)
--- NOTE | 2017-05-03 09:27 | Pulmonology Progress Note ---
Pulmonary - PN: Subj Interval history: Patient still having some intermittent chest pain and is short of breath. He has bibasilar crackles. I do think there is an element of congestive heart failure. He has had Lasix. He is for cardiac catheterization tomorrow. 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 We will wait on further evaluation there until his cardiac catheterization has been completed. From a pulmonary standpoint, there is nothing really to add at this point. I will sign off. Please call if needed further. Exam (Progress Note) - Constitutional Vitals: Period Temp Pulse Resp BP Sys/Bah Pulse Ox Last 24 Hr 96 F-98.8 F 18-94 16-20 99-140/57-83 94-98 Exam: Vital signs normal. Pupils react to light. Throat is clear. Neck supple no bruits. Chest reveals bibasilar crackles. Heart normal rate and rhythm no murmurs. Abdomen soft nontender no masses. Extremities no clubbing cyanosis or edema. Calves nontender. 1+ edema. Results - Labs CBC & BMP: 05/03/17 04:07 05/03/17 04:07 Lab Results: I have reviewed the past 24 hour labs Assessment and Plan (1) Mediastinal mass Status: Acute Assessment and plan: Difficult to tell how long this has been present as it would not be visible on plain chest x-ray. I do not think he is having any symptoms referable to this area. My suggestion would be to have a thoracic surgeon look at him. He may want to follow it, get it needle biopsied, or do a mediastinoscopy. This is not an area of the chest that I could get to with a bronchoscope. The differential diagnosis for an anterior mediastinal mass would be thymoma, teratoma, substernal thyroid. Of those I think a teratoma would be quite unlikely. The lesion does not appear to be continuous with his thyroid. It does not appear to be adenopathy. I would workup his cardiac situation first as I think this is the primary cause of his symptoms. Ask Dr. Goyal to review the CT and patient on Thursday05/03/2017 Dr. Goyal has seen the patient. He will follow-up on this. His inclination is that this may be a pericardial cyst. That would fit with the appearance of it and the fact that he is really not symptomatic from that. Plans are to proceed with cardiac catheterization tomorrow. Current Visit: Yes (2) New onset a-fib Status: Acute Assessment and plan: Being addressed by cardiology. Current Visit: Yes (3) CHF (congestive heart failure) Status: Acute Assessment and plan: Certainly the small pleural effusions, basilar crackles, dyspnea on exertion, orthopnea, elevated BNP of close to 400 all would be suggestive of congestive heart failure. Cardiology is going to work him up to find the cause for this. This should be done prior to any evaluation of the anterior mediastinal mass. 05/03/2017 he is getting IV Lasix. Still has some basilar crackles and dyspnea. Defer to cardiology. Current Visit: Yes
[2017-05-03] MEDS: FUROSEMIDE 40 MG/4 ML VIAL IV SCH ×2 (09:42→16:39)
[2017-05-03] MEDS: POTASSIUM CHLORIDE 20 MEQ TABLET PO SCH (09:42)
[2017-05-03] MEDS: MULTIVITAMIN (CENTRUM) TABLET PO SCH (09:42)
[2017-05-03] MEDS: TAMSULOSIN 0.4 MG CAPSULE PO SCH (09:43)
[2017-05-03] MEDS: PANTOPRAZOLE 40 MG TABLET PO SCH ×3 (09:43→20:47)
[2017-05-03] MEDS: FINASTERIDE 5 MG TABLET PO SCH (09:43)
[2017-05-03] MEDS: SUCRALFATE 1 GM TABLET PO SCH ×4 (09:43→20:48)
[2017-05-03] MEDS: CARVEDILOL 6.25 MG TABLET PO SCH (09:43)
--- NOTE | 2017-05-03 10:31 | Family Practice Progress Note ---
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 fib , found to have anterior mediastinal mass on imaging. Has h/o htn, GERD, CHF pt seen and examined on TELE Floor , Accompanied by spouse, grandson at bedside. Is sitting up in chair, feeling tired and fatigued, c/o discomfort in the chest, shortness of breath intermittently since admission. no fever , nausea, vomiting , headaches or dizziness, , constipation, last bowel movement 4 days ago. No overnight events reported by the nurse, Exam (Progress Note) - Constitutional Vitals: Period Temp Pulse Resp BP Sys/Bah Pulse Ox Last 24 Hr 96 F-98.8 F 18-94 16-20 99-140/57-83 94-98 Exam: Examination: GENERAL: Alert, oriented, is mildly short of breath on talking, fatigued , male pt, sitting in the recliner chair. HEENT: normal, ,PERRLA. EOMI. Mucous membranes are moist. NECK: Neck is supple. No JVD. No carotid bruit. No thyromegaly. CVS: Irregularly irregular rhythm, rate is below 100 RESPIRATORY: Clear to ausculation bilaterally except basal crackles, ABDOMEN: Soft and nontender. Bowel sounds are present. No hepatosplenomegaly. EXT: No edema. FIRE OFFICER: Patient is awake, alert and oriented, Cranial nerves 2-12 grossly intact. Results - Labs CBC & BMP: 05/03/17 04:07 05/03/17 04:07 Lab Results: I have reviewed the past 24 hour labs - Impressions Echocardiogram from 05/02/2017, IMPRESSIONS Normal LV systolic and diastolic function, ejection fraction 55%. Mild concentric left ventricular hypertrophy. Mild biatrial enlargement. Mild right ventricular dilation. Mild mitral, tricuspid and pulmonic regurgitation. Aortic sclerosis without stenosis. Chest CT PE protocol from 05/01/2017 Impression: 1. No evidence of pulmonary thromboemboli. 2. 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 Bilateral basilar effusions and atelectatic change minimal pneumonic infiltrate cannot be excluded 4. Calcified mediastinal mass left hilar region measuring up to 3.6 cm 5. Multiple compression fractures lower thoracic upper lumbar spine area. 6. Slightly distended gallbladder without obvious stones 7. Underlying interstitial edema or mild interstitial fibrotic scarring. Assessment and Plan (1) Shortness of breath Status: Acute Assessment and plan: Mildly improved, currently on duo nebs, Levaquin day 2, Followed recommendations as per pulmonology and technical services specialist, possibly having a [facility] in a.m. 2. New onset A. fib, CHF, on meds. Lasix, Coreg. 3. Mediastinal mass, continue cardiothoracic recommendations. 4. Hypokalemia, on potassium replacement. 5. Hypertension, continue current regimen, 6. GERD, stable on antacids. Current Visit: Yes (2) CHF (congestive heart failure) Status: Chronic Current Visit: Yes (3) GERD (gastroesophageal reflux disease) Status: Chronic Current Visit: Yes (4) Mediastinal mass Status: Acute Current Visit: Yes (5) New onset a-fib Status: Acute Current Visit: Yes (6) Hypertension Status: Chronic Current Visit: Yes Quality Measures - Stroke Symptom Onset Unknown: No
[2017-05-03] MEDS ORDERED: DIAZEPAM 5 MG TABLET PO ONE (16:07)
[2017-05-03] MEDS ORDERED: MAGNESIUM SULF RIDER 2 GM in PREMIX 1 EACH IV PRN (16:07)
[2017-05-03] MEDS ORDERED: diphenhydrAMINE CAP 25 MG CAPSULE PO ONE (16:07)
--- NOTE | 2017-05-03 16:14 | Cardiology Progress Note ---
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 Chatman is a 81 year old male without a prior cardiac history, with risk factors significant for hypertension and advanced age. He was admitted to the hospital with initially subacute decline in his exercise tolerance with a more acute decline in severe exertional dyspnea just prior to admission. There is a question of atrial fibrillation, although on the ECGs performed to date 1 has a very poor baseline, the other is difficult to discern the P waves but it is a regular, narrow complex rhythm and I believe in general is a sinus rhythm with premature atrial contraction. 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 May 03, 2017: He continues to have significant dyspnea. There is an element of orthopnea but it is mainly and exertional dyspnea. He is had a lot of discomfort in his hip and knees, he has some spinal stenosis. Impression and plan: 1. Shortness of breath-this may be multifactorial. 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 He has a normal systolic function. BNP is still less than 400, which is not so consistent with heart failure, although on CT there may be elements of infiltrate, fibrosis, and/or edema. He does have a leukocytosis and is being treated for pneumonia. Given the severity of his symptoms, we are going to proceed with heart catheterization tomorrow for definitive diagnosis.. 2. Mediastinal mass-I have discussed this case with Dr. Goyal. He believes that this is a pericardial cyst and does not have an urgent need for definitive diagnosis. 3. Atrial fibrillation-I do not believe his atrial fibrillation, I think this is sinus rhythm. Again I will repeat the ECG. 4. Hypertension-chronic, stable. 5. Anemia-this is mildly microcytic and we will need to work this up if we are considering cardiac catheterization and possible antiplatelet therapy and/or anticoagulation for his atrial fibrillation. Exam (Progress Note) - Constitutional Vitals: Period Temp Pulse Resp BP Sys/Bah Pulse Ox Last 24 Hr 96.3 F-97.9 F 18-94 16-20 99-143/57-83 94-98 Exam: General appearance: normal weight, no acute distress - Head Head exam: Present: normal inspection, normocephalic, atraumatic. Absent: hematoma, laceration - Eye Eye exam: Present: EOMI. Absent: conjunctival injection, nystagmus, periorbital swelling, scleral icterus, laceration to eyelids Pupils: Present: PERRL. Absent: constricted, dilated, fixed, irregular, unequal - ENT ENT exam: Present: normal exam, normal external ear exam - Neck Neck exam: Present: normal inspection. Absent: lymphadenopathy, meningismus, tenderness, thyromegaly - Respiratory Respiratory exam: Present: Fine crackles in the bilateral bases that could represent fibrosis versus edema. Absent: accessory muscle use, chest wall tenderness - Cardiovascular Cardiovascular exam: Present: regular rate and rhythm. Absent: carotid bruit, gallop, JVD, rubs - GI/Abdominal GI/Abdominal exam: Present: normal bowel sounds, soft. Absent: distended, firm , guarding, hernia, mass, tenderness, rebound. - Extremities Exam Extremities exam: Present: normal inspection, normal capillary refill. Absent: calf tenderness, edema - Back Exam Back exam: Present: normal inspection. Absent: muscle spasm, vertebral tenderness - Neurological Exam Neurological exam: Present: alert, oriented X3, grossly intact without resting or intention tremor - Psychiatric Psychiatric exam: Present: normal affect, normal mood - Skin Skin exam: Present: normal color, warm, dry, intact. Absent: cyanosis, diaphoretic, rash, urticaria Result/EKG - Labs CBC & BMP: 05/03/17 04:07 05/03/17 04:07 Lab Results: I have reviewed the past 24 hour labs Labs: Laboratory Results - last 24 hr 05/03/17 05/03/17 04:07 04:07 WBC 13.0 H RBC 3.80 Hgb 11.7 L Hct 33.4 L MCV 87.9 MCH 31 MCHC 35.0 RDW 12.3 Plt Count 342 MPV 9.6 Neut % (Auto) 80.9 H Lymph % (Auto) 7.6 L Gage % (Auto) 8.8 Eos % (Auto) 0.5 Baso % (Auto) 0.7 Neut # (Auto) 10.5 H Lymph # (Auto) 1.0 L Gage # (Auto) 1.1 H Eos # (Auto) 0.1 Baso # (Auto) 0.1 Immature Gran % 1.5 Nucleated RBC % 0.0 Immature Gran # 0.19 Nucleated RBCs # 0.00 Immature Plt Fraction 0.0 Sodium 130 L Potassium 3.3 L Chloride 91 L Carbon Dioxide 30 Anion Gap 12.3 BUN 28 H Creatinine 1.40 H GFR Calculation 61 BUN/Creatinine Ratio 20.00 Glucose 91 Calculated Osmolality 265.8 L Calcium 9.1 - EKG EKG results: interpreted by me, sinus rhythm Quality Measures - Stroke Symptom Onset Unknown: No
--- NOTE | 2017-05-03 16:24 | History and Physical Update ---
Sedation H&P Update - History and Physical H&P was reviewed, the patient examined and there: are no changes in the patients condition since last H&P was completed. - Dictation Physical: refer to H&P completed by admitting physician - Physical Exam Mental Status: alert and oriented Heart: regular rate and rhythm Lung: clear to auscultation Abdomen: within normal limits Vitals: within normal limits - Sedation Plan for Sedation: moderate Patient Consent: Procedure disscussed with patient and patinet has consented., Risks and benefits were discussed with patient,including infection,, bleeding, injury to surrounding structures, seizure, temporary nerve, Patient understands and accepts potential risks/benefits and agrees to, proceed. ASA Class: IV Airway Assessment: Class II: Soft palate, uvula, fauces visible
[2017-05-03] MEDS: DOCUSATE SODIUM 100 MG CAPSULE PO SCH (20:47)
[2017-05-03] MEDS: NEBIVOLOL 5 MG TABLET PO SCH (20:47)
[2017-05-03] MEDS: AMITRIPTYLINE 50 MG TABLET PO SCH (20:48)
[2017-05-04] MEDS: LEVOFLOXACIN INJ 750 MG in PREMIX 1 EACH IV SCH (01:47)
[2017-05-04] MEDS: SODIUM CHLORIDE 0.45% 1,000 ML IV SCH ×2 (01:47→15:37)
[2017-05-04 06:13] LABS: Basophils # 0.1 10*3/uL (0.0-0.2); Basophils % 1.1 % (0.0-0.8); Eosinophils # 0.4 10*3/uL (0.0-0.87); Eosinophils % 2.9 % (0.00-10.9); Hematocrit 35.2 VOL% (42.0-52.0); Hemoglobin 12.3 GM/DL (14.0-18.0); Immature Granulocytes % 1.5 %; Immature Granulocytes Absolute 0.19 #; Mean Corpuscular HGB Conc 34.9 GM/DL (32-36); Mean Corpuscular Hemoglobin 30 PG (27-34); Mean Corpuscular Volume 87.1 FL (87-102); Mean Platelet Volume 9.1 FL (9.6-12.0); Monocytes # 1.2 10*3/uL (0.11-0.8); Monocytes % 9.5 % (1.7-12.7); Neutrophils # 9.8 10*3/uL (1.4-7.4); Platelet Count 370 T/CUMM (130-400); Red Blood Count 4.04 MC/CUMM (3.8-5.5); Red Cell Distribution Width 12.3 % (9.3-17.3); White Blood Count 12.7 T/CUMM (4-12)
[2017-05-04 06:42] LABS: Calcium 9.1 MG/DL (8.5-10.1); Magnesium 2.2 MG/DL (1.8-2.4); Osmolality,Calculated 265.8 MOS/KG (273-304); Potassium 3.2 MMOL/L (3.5-5.1)
[2017-05-04 06:49] LABS: % Iron Saturation 14.8 % (18-50)
[2017-05-04 06:55] LABS: Folate > 24.0 NG/ML (5.4-24.0); Vitamin B12 1963 PG/ML (211-911)
[2017-05-04 06:59] LABS: INR 1.1; PT Patient Result 11.7 SECS
[2017-05-04] MEDS ORDERED: DIAZEPAM 5 MG TABLET ONE (07:38)
[2017-05-04] MEDS ORDERED: diphenhydrAMINE CAP 25 MG CAPSULE ONE (07:39)
[2017-05-04] MEDS ORDERED: LIDOCAINE 1% 20 ML VIAL ONE (07:47)
[2017-05-04] MEDS ORDERED: HEPARIN/NACL 0.9% 2 UNITS/ML 1,000 ML IV ONE (07:47)
[2017-05-04] MEDS: NEBIVOLOL 5 MG TABLET PO SCH ×2 (07:49→09:25)
[2017-05-04] MEDS: PANTOPRAZOLE 40 MG TABLET PO SCH ×3 (07:50→20:38)
[2017-05-04] MEDS ORDERED: MIDAZOLAM 2 MG/2 ML VIAL ONE (08:02)
[2017-05-04] MEDS ORDERED: fentaNYL 100 MCG/2 ML VIAL ONE (08:27)
--- NOTE | 2017-05-04 08:57 | XRay Report ---
XR chest 2V Date: 05/04/2017 4:00 AM History: Shortness of breath Comparison: 05/01/2017 Technique: PA and lateral chest Findings: The heart is minimally enlarged with calcified granulomata/nodes. Decreased parenchymal findings with small pleural effusions. Persistent compression fracture at L1 as noted on chest CT. Impression: COPD. Decreased interstitial edema/atelectasis with persistent small pleural effusions. Stable calcified finding in the left hilar location. L1 compression fracture not identified on prior MRI 09/21/2014. PROCEDURE INTERPRETED AT [facility] [place] DEPARTMENT OF RADIOLOGY Final Report Signed by: Dr. Shanique Kidd
[2017-05-04] MEDS ORDERED: MORPHINE 2 MG/1 ML SYRINGE IV PRN (09:08)
[2017-05-04] MEDS ORDERED: ACETAMINOPHEN 325 MG TABLET PO PRN (09:08)
[2017-05-04] MEDS: TAMSULOSIN 0.4 MG CAPSULE PO SCH (09:26)
[2017-05-04] MEDS: FINASTERIDE 5 MG TABLET PO SCH (09:26)
[2017-05-04] MEDS: POTASSIUM CHLORIDE 20 MEQ TABLET PO SCH (09:26)
[2017-05-04] MEDS: MULTIVITAMIN (CENTRUM) TABLET PO SCH (09:26)
[2017-05-04] MEDS: SUCRALFATE 1 GM TABLET PO SCH ×4 (09:26→20:38)
--- NOTE | 2017-05-04 09:30 | Cardiology Operative Report ---
Date of Procedure:: 05/04/17 Pre-op diagnosis: Severe dyspnea Post-op diagnosis: other (Mild coronary atherosclerosis) Procedure: 1. Selective left and right coronary angiography. 2. Left heart catheterization with left ventriculogram. 3. Right iliac angiography to rule out vascular complications. 4. Application of Mynx hemostasis device to the right femoral arteriotomy site. Impression: 1. Mild coronary atherosclerosis. 2. Right dominant coronary arteries. 3. Ejection fraction 55 %. 4. Angiographically normal right iliac artery without evidence of vascular complications. Plan: 1. Medical management. 2. Noncardiac workup if symptoms. Equipment: Diagnostic 6 Swedish JL4, JR4, pigtail catheters, mynx. Hemodynamics: Aortic pressure 102/55 mmHg, left ventricular pressure 108/5 mmHg, LVEDP 12 mmHg Sedation: Versed 2 mg, fentanyl 50 mcg Procedure: After informed consent was obtained the patient was prepped and draped in sterile fashion. The right groin was infiltrated with 1% lidocaine and the right femoral artery was accessed via modified Seldinger technique using a micropuncture needle and a 6 Swedish femoral arterial sheath was placed. All catheter exchanges were performed over a guidewire under fluoroscopic guidance. Diagnostic 6 Swedish JL4 and JR4 catheters were advanced to the left and right coronary arteries respectively and multiple cineangiograms were performed in varying degrees of obliquity and angulation. Thereafter a pigtail catheter was advanced into the left ventricle where hemodynamics were obtained followed by left ventriculogram. At conclusion of the procedure right iliac angiography was performed to rule out vascular complications. A Mynx hemostasis device was unsuccessfully applied to the right femoral arteriotomy site. Findings: 1. The left main artery is angiographically normal. 2. The left anterior descending artery extends to the apex and wraps around. There are mild luminal irregularities with up to 30% stenosis in the mid segment , but no significant stenosis. 3. There is an intermediate ramus branch that is small, free of significant disease. 4. The circumflex artery is nondominant. It gives rise to 2 marginal branches. There are mild luminal irregularities but no significant stenosis. 5. The right coronary artery is dominant, has mild luminal irregularities but no significant stenosis. 6. Ejection fraction is 55 % with normal anterior, inferior and apical wall motion. 7. Mild mitral regurgitation. 8. No significant aortic stenosis. 9. The right iliac artery is angiographically normal without evidence of vascular complications. Contrast use: Visipaque 78 cc Fluoro time: 2.0 minutes Complications: none Specimens removed: none Devices implanted: Mynx Anesthesia: moderate conscious sedation Surgeon / Physician: Arielle Simon Juvenile Justice Specialist: none (Giorgi Boyer) Estimated blood loss: minimal Specimens: none sent Condition: stable Disposition: floor
--- NOTE | 2017-05-04 10:09 | Physician Query Form ---
CLICK EDIT DOCUMENT TO SELECT QUERY ANSWER --> OK --> SIGN Mariah Chowdary RN, CCDS Certified Clinical Breast Buffer W) [phone] (f) [phone] [email or web address] PROVIDERS: Make your selection(s) from the choices in EACH section by typing an "x" and enter comments in the comment section. Please use your independent medical judgment in providing your response. This request does not imply that any particular answer is desired or expected. CLINICAL INDICATORS: (Providers should not edit this section) The medical record indicates that the patient was admitted with CHF, BNP close to 400, EF 55% and the patient was treated with IV Lasix. Please provide further specificity regarding CHF. ACUITY: ( x) Acute ( ) Chronic () Acute on Chronic ( ) Clinically unable to determine TYPE: ( ) Systolic (HFrEF - heart failure with reduced systolic function/EF) (x ) Diastolic (HFpEF - heart failure with preserved systolic function/EF) ( ) Combined Systolic/Diastolic ( ) Other, please specify: ( ) Clinically unable to determine ( ) Past Medical History of Systolic CHF ( ) Past Medical History of Diastolic CHF ( ) Clinically unable to determine COMMENTS: PLEASE ALSO DOCUMENT RESPONSE IN PROGRESS NOTES AND/OR DISCHARGE SUMMARY Use of terms such as suspected, likely, or probable (associated with a specific diagnosis that is being evaluated, monitored, or treated as if it exists) are acceptable and can be restated in the discharge summary if not ruled out. MTDD
[2017-05-04] MEDS: ALBUTEROL/IPRATROPIUM 3 ML NEB RESP TX PRN ×2 (12:03→16:36)
--- NOTE | 2017-05-04 13:42 | Family Practice Progress Note ---
Family Practice - PN: Subj Interval history: Patient states he is doing well and had a good report on his left heart catheterization. He certainly appears to have some pneumonia that may be the cause of his dyspnea. His left hilar mass is not associated with any adenopathy but he is complaining of chest pain. He does have a history of hiatal hernia told him this certainly could be a cause of his discomfort. He wanted to see GI for at all possible as Dr. Moseley had scheduled him an appointment to see Dr. Raza. Exam (Progress Note) - Constitutional Vitals: Period Temp Pulse Resp BP Sys/Bah Pulse Ox Last 24 Hr 96.4 F-98.7 F 55-97 16-20 93-132/46-84 92-100 Exam: Objective reveals a well-developed gentleman who is able to give an excellent history. He is quite articulate Cardiovascular: The heart rates regular without murmurs or gallops. Respiratory: The lungs are clear to auscultation bilaterally with no rales, rhonchi or wheeze. Abdomen: Abdomen is soft and nontender to palpation. Results - Labs CBC & BMP: 05/04/17 06:00 05/04/17 06:00 Lab Results: I have reviewed the past 24 hour labs Assessment and Plan (1) Mediastinal mass Status: Acute Assessment and plan: 05/04/2017: Patient has been evaluated by thoracic surgery and is pondering his options. Current Visit: Yes (2) Atypical chest pain Status: Acute Assessment and plan: 05/04/2017: Patient's coronary arteries are free of disease. Will ask GI to see him as well. Current Visit: Yes Quality Measures - Stroke Symptom Onset Unknown: No Specialty Discharge - Follow Up or Referrals Follow up with: Wayne Goyal [Physician] - 05/18/17 9:45 am
--- NOTE | 2017-05-04 14:49 | Gastrointestinal Consult Note ---
Assessment and Plan (1) Atypical chest pain Status: Acute Assessment and plan: 05/04-reports of recent onset epigastric pain, not associated with any other factors, with increased dysphagia and GERD. Heart catheterization today with findings as below. Mildly anemic as noted below with no prior history of this. Recent initiation of Plavix therapy for atrial fibrillation. Continue Protonix. Plan an addendum to followed by Dr. Raza.. Current Visit: Yes History of Present Illness Chief complaint: Shortness of breath, epigastric pain History of present illness: Mr. Chatman is a 81 year old male who was admitted to the hospital with several day history of increasingly shortness of breath. Patient states that he was in his usual state of health until the middle to end of last week when he started to notice that he had increased shortness of breath with any activity. He states that that was out of the usual for him, especially that he became short of breath even with lying down at times therefore came to the emergency room for further evaluation. 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 Lakhwinder Nix also consulted with patient and a heart catheterization and echocardiogram was recommended. He underwent heart catheterization today with only mild coronary arthrosclerosis and an EF of 55% found. He was also found to have leukocytosis as well as pneumonia upon admission. There is also mention of possible atrial fibrillation and patient was started on Plavix during this admission. Patient also brought forth on admission that he has had an onset of epigastric pain recently that did not seem to be associated with any other factors including meals. He does complain of an increase in reflux as well as some dysphagia, primarily to pills and liquids. He denies regurgitation with eating but does have early satiety at times. He denies any nausea or vomiting with this. He denies any recent weight loss. He denies any melena or hematochezia. He states that he has had endoscopy in the past but it has been greater than 10 years ago for both upper and lower endoscopy. He cannot recall the findings of these nor where these were done at. He also complains of a fairly recent onset of constipation and which has been controlled with Colace and increase fiber in his diet until recently. He was also felt to be mildly anemic on admission with an H&H of however states he has never had a blood transfusion in the past nor has been diagnosed with anemia. He has a mildly elevated BUN/ creatinine ratio of 23. Home Medications Medication Instructions Recorded Confirmed Type Amitriptyline [Elavil] 50 mg PO BEDTIME 11/30/16 05/01/17 History Carvedilol 6.25 mg PO BID 11/30/16 05/01/17 History Chlorthalidone 25 mg PO QAM 11/30/16 05/01/17 History Finasteride 5 mg PO QPM 11/30/16 05/01/17 History Pantoprazole Tab [Protonix Tab] 40 mg PO BID 11/30/16 05/01/17 History Tamsulosin [Flomax] 0.4 mg PO PC SUPPER 11/30/16 05/01/17 History amLODIPine [Norvasc] 5 mg PO BID 11/30/16 05/01/17 History Acetaminophen Tab [Tylenol Tab] 325 - 650 mg PO QOTHER DAY PRN 03/30/17 History Docusate Sodium 100 mg PO BEDTIME 03/30/17 05/01/17 History Multivitamin [Multivitamins] 1 each PO QAM 03/30/17 05/01/17 History Sucralfate Tab [Carafate Tab] 1 gm PO QID 05/01/17 05/01/17 History Allergies Allergy/AdvReac Type Severity Reaction Status Date / Time gabapentin [From Neurontin] Allergy Severe Diarrhea Verified 05/01/17 19:05 latex AdvReac Redness of Verified 05/01/17 19:05 Skin Medical,Surgical,& Family Hx - Medical History Cardio: History of: CHF, Hypertension Neurology: History of: TIA No history of: Seizures Endocrine: No history of: Diabetes Mellitus (IDDM), Diabetes Mellitus (NIDDM) Respiratory: History of: Respiratory Problems (left lung calcification 3.5cm) Genitourinary: History of: Prostate Problems (enlarged) Gastrointestinal: History of: GERD, GI Problems (Hital hernia) Musculoskeletal: History of: Back/Neck Problems (spinal stenosis/scoliosis), Musculoskeletal Problems (feet, left knee) - Surgical History Cardiac Surgeries: Patient Denies: Cardiac Catheterization Thoracic Surgeries: Patient denies;: Organ Transplant Orthopedic Surgeries: Surgical HX of;: Orthopedic Surgery (left ankle metal plate) - Family History Family History: Reports;: Family Heart Disease, Family Stroke - Social History Smoking Status: Never smoker Frequency of Alcohol Use: None Type of Drug Use: None 12 point system: reviewed and no additional remarkable complaints except as stated - Constitutional Constitutional: Present: as per HPI - EENT Eyes: Present: as per HPI Ears: Present: as per HPI Nose, mouth and throat: Present: as per HPI, dysphagia - Cardiovascular Cardiovascular: Present: as per HPI - Respiratory Respiratory: Present: as per HPI - Gastrointestinal Gastrointestinal: Present: as per HPI, abdominal pain (Epigastric), dysphagia, early satiety, heartburn - Genitourinary Genitourinary: Present: as per HPI - Musculoskeletal Musculoskeletal: Present: as per HPI - Neurological Neurological: Present: as per HPI - Psychiatric Psychiatric: Present: as per HPI - Endocrine Endocrine: Present: as per HPI - Hematologic/Lymphatic Hematologic/Lymphatic: Present: as per HPI Exam - Constitutional Vitals: Period Temp Pulse Resp BP Sys/Bah Pulse Ox Last 24 Hr 96.4 F-98.7 F 55-97 16-20 93-132/46-84 92-100 General appearance: normal weight, no acute distress - Head Head exam: Present: normal inspection, normocephalic - Eye Eye exam: Present: other (Lids and conjunctive are unremarkable). Absent: scleral icterus - ENT ENT exam: Present: normal exam, normal oropharynx - Neck Neck exam: Present: normal inspection - Respiratory Respiratory exam: Present: clear to auscultation bilaterally. Absent: rales, rhonchi, wheezes - Cardiovascular Cardiovascular exam: Present: regular rate and rhythm. Absent: diastolic murmur , JVD, systolic murmur - GI/Abdominal GI/Abdominal exam: Present: normal bowel sounds, soft. Absent: ascites, distended, mass, organomegaly, tenderness - Extremities Exam Extremities exam: Present: normal inspection, full ROM - Back Exam Back exam: Present: normal inspection - Neurological Exam Neurological exam: Present: alert, oriented X3 - Psychiatric Psychiatric exam: Present: normal affect, normal mood - Skin Skin exam: Present: normal color, warm, dry Results - Labs CBC & BMP: 05/04/17 06:00 05/04/17 06:00 Lab Results: I have reviewed the past 24 hour labs Quality Measures - Stroke Symptom Onset Unknown: No Specialty Discharge - Follow Up or Referrals Follow up with: Wayne Goyal [Physician] - 05/18/17 9:45 am
[2017-05-04] MEDS: AMITRIPTYLINE 50 MG TABLET PO SCH (20:38)
[2017-05-04] MEDS: DOCUSATE SODIUM 100 MG CAPSULE PO SCH (20:38)
[2017-05-05] MEDS: LEVOFLOXACIN INJ 750 MG in PREMIX 1 EACH IV SCH (01:15)
[2017-05-05] MEDS: ENOXAPARIN 40 MG/0.4 ML SYRINGE SUBCUT SCH (03:39)
[2017-05-05 05:12] LABS: Basophils # 0.2 10*3/uL (0.0-0.2); Basophils % 1.4 % (0.0-0.8); Eosinophils # 0.3 10*3/uL (0.0-0.87); Eosinophils % 2.2 % (0.00-10.9); Hematocrit 33.4 VOL% (42.0-52.0); Hemoglobin 11.7 GM/DL (14.0-18.0); Immature Granulocytes % 1.9 %; Immature Granulocytes Absolute 0.21 #; Lymphocytes # 1.2 10*3/uL (1.4-4.0); Lymphocytes % 10.6 % (21.2-54.2); Mean Corpuscular Hemoglobin 31 PG (27-34); Mean Corpuscular Volume 88.1 FL (87-102); Mean Platelet Volume 9.4 FL (9.6-12.0); Monocytes # 1.4 10*3/uL (0.11-0.8); Monocytes % 12.4 % (1.7-12.7); Neutrophils % 71.5 % (38.7-73.9); Platelet Count 374 T/CUMM (130-400); Red Blood Count 3.79 MC/CUMM (3.8-5.5); Red Cell Distribution Width 12.5 % (9.3-17.3); White Blood Count 11.1 T/CUMM (4-12)
[2017-05-05 05:33] LABS: Calcium 8.6 MG/DL (8.5-10.1); Osmolality,Calculated 267.7 MOS/KG (273-304); Potassium 3.2 MMOL/L (3.5-5.1)
[2017-05-05] MEDS ORDERED: LINACLOTIDE 145 MCG CAPSULE PO SCH (07:30)
--- NOTE | 2017-05-05 07:48 | Family Practice Progress Note ---
Family Practice - PN: Subj Interval history: Patient states he is overall feeling better. He still very weak however and has a little difficulty making it back and forth to the restroom. States he has no shortness of breath however. Patient was seen with Dr. Raza yesterday and will see him in the future for possible EGD with dilatation. Exam (Progress Note) - Constitutional Vitals: Period Temp Pulse Resp BP Sys/Bah Pulse Ox Last 24 Hr 96.7 F-98.6 F 55-86 17-20 96-122/53-72 95-100 Exam: Objective reveals a well-developed gentleman who is able to give an excellent history. He is sitting up in his chair and appears quite comfortable. He has no overt dyspnea. Cardiovascular: The heart rates regular without murmurs or gallops. Respiratory: The lungs are clear to auscultation bilaterally with no rales, rhonchi or wheeze. Abdomen: Abdomen is soft and nontender to palpation. Results - Labs CBC & BMP: 05/05/17 03:30 05/05/17 03:30 Lab Results: I have reviewed the past 24 hour labs Assessment and Plan (1) Mediastinal mass Status: Acute Assessment and plan: 05/04/2017: Patient has been evaluated by thoracic surgery and is pondering his options. 05/05/2017: Patient still pondering his options. Current Visit: Yes (2) Atypical chest pain Status: Acute Assessment and plan: 05/04/2017: Patient's coronary arteries are free of disease. Will ask GI to see him as well. 05/05/2017: Patient will be scheduled for upper endoscopy sometime in the future. Current Visit: Yes Quality Measures - Stroke Symptom Onset Unknown: No Specialty Discharge - Follow Up or Referrals Follow up with: Wayne Goyal [Physician] - 05/18/17 9:45 am
--- NOTE | 2017-05-05 08:06 | Pulmonology Progress Note ---
Pulmonary - PN: Subj Interval history: Patient still having some intermittent chest pain and is short of breath. He has bibasilar crackles. I do think there is an element of congestive heart failure. He has had Lasix. He is for cardiac catheterization tomorrow. 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 We will wait on further evaluation there until his cardiac catheterization has been completed. From a pulmonary standpoint, there is nothing really to add at this point. I will sign off. Please call if needed further. 05/05/2017 checked back in on patient. He was having to sleep sitting up. He still has bibasilar crackles. I think he needs to be diuresed a little further. I think there is an element of congestive heart failure. His catheterization was negative. Thoracic surgery plans to watch the anterior mediastinal mass. I agree with that plan. I think it is likely to be benign. It is not symptomatic at present. I did resume his IV Lasix. If he is to be discharged he would need to be on oral Lasix. Exam (Progress Note) - Constitutional Vitals: Period Temp Pulse Resp BP Sys/Bah Pulse Ox Last 24 Hr 96.7 F-98.6 F 55-86 17-20 96-122/53-72 95-100 Exam: Vital signs normal. Pupils react to light. Throat is clear. Neck supple no bruits. Chest reveals bibasilar crackles. Heart normal rate and rhythm no murmurs. Abdomen soft nontender no masses. Extremities no clubbing cyanosis or edema. Calves nontender. 1+ edema. Little change from yesterday. Results - Labs CBC & BMP: 05/05/17 03:30 05/05/17 03:30 Lab Results: I have reviewed the past 24 hour labs Assessment and Plan (1) Mediastinal mass Status: Acute Assessment and plan: Difficult to tell how long this has been present as it would not be visible on plain chest x-ray. I do not think he is having any symptoms referable to this area. My suggestion would be to have a thoracic surgeon look at him. He may want to follow it, get it needle biopsied, or do a mediastinoscopy. This is not an area of the chest that I could get to with a bronchoscope. The differential diagnosis for an anterior mediastinal mass would be thymoma, teratoma, substernal thyroid. Of those I think a teratoma would be quite unlikely. The lesion does not appear to be continuous with his thyroid. It does not appear to be adenopathy. I would workup his cardiac situation first as I think this is the primary cause of his symptoms. Ask Dr. Goyal to review the CT and patient on Thursday05/03/2017 Dr. Goyal has seen the patient. He will follow-up on this. His inclination is that this may be a pericardial cyst. That would fit with the appearance of it and the fact that he is really not symptomatic from that. Plans are to proceed with cardiac catheterization tomorrow. 05/05/2017 plans are to follow mediastinal mass radiographically. I agree with that. 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 A malignancy is much less likely since he is asymptomatic with a lesion of this size. Current Visit: Yes (2) New onset a-fib Status: Acute Assessment and plan: Being addressed by cardiology. Current Visit: Yes (3) CHF (congestive heart failure) Status: Chronic Assessment and plan: Certainly the small pleural effusions, basilar crackles, dyspnea on exertion, orthopnea, elevated BNP of close to 400 all would be suggestive of congestive heart failure. Cardiology is going to work him up to find the cause for this. This should be done prior to any evaluation of the anterior mediastinal mass. 05/03/2017 he is getting IV Lasix. Still has some basilar crackles and dyspnea. Defer to cardiology. 05/05/2017 I have resumed Lasix. It was held for a couple of days. He still has crackles, edema, and exertional dyspnea. His CT scan showed small bilateral pleural effusions which would be most consistent with congestive heart failure. Current Visit: Yes Specialty Discharge - Follow Up or Referrals Follow up with: Wayne Goyal [Physician] - 05/18/17 9:45 am
[2017-05-05] MEDS: LINACLOTIDE 145 MCG CAPSULE PO SCH (08:31)
[2017-05-05] MEDS: FINASTERIDE 5 MG TABLET PO SCH (08:31)
[2017-05-05] MEDS: MULTIVITAMIN (CENTRUM) TABLET PO SCH (08:31)
[2017-05-05] MEDS: POTASSIUM CHLORIDE 20 MEQ TABLET PO SCH (08:31)
[2017-05-05] MEDS: PANTOPRAZOLE 40 MG TABLET PO SCH ×2 (08:31→22:02)
[2017-05-05] MEDS: TAMSULOSIN 0.4 MG CAPSULE PO SCH (08:32)
[2017-05-05] MEDS: SUCRALFATE 1 GM TABLET PO SCH ×4 (08:32→22:01)
[2017-05-05] MEDS: NEBIVOLOL 5 MG TABLET PO SCH (08:52)
--- NOTE | 2017-05-05 09:15 | EKG Report ---
Stationary ECG Study [facility] Test Date: 05/05/2017 9:14:10 AM Pat Name: KAMRAN RICHARD Department: Room: 295 Gender: M P[employer] Boner: : 1935 Requested by: Maria D Lynn Order Number: [id number] Reading MD: AMMON MACKENZIE Intervals [place] Rate: 60 P: 999 CO: 0 QRS: -8 QRSD: 114 T: -33 QT: 464 QTc: 465 Interpretive Statements ATRIAL FIBRILLATION POOR R-WAVE PROGRESSION Electronically Signed On 05-05-17 15:40:46 CDT by AMMON MACKENZIE [email or web address]
--- NOTE | 2017-05-05 09:39 | Gastrointestinal Progress Note ---
Assessment and Plan (1) Atypical chest pain Status: Acute Assessment and plan: 05/05-No complaints of pain at this time. Still continued complaints of dysphagia especially pills. Continue on Plavix at this time. Discussed with patient can schedule outpatient EGD after discharge once Plavix can be held. Further plan an addendum to followed by Dr. Raza 05/04-reports of recent onset epigastric pain, not associated with any other factors, with increased dysphagia and GERD. Heart catheterization today with findings as below. Mildly anemic as noted below with no prior history of this. Recent initiation of Plavix therapy for atrial fibrillation. Continue Protonix. Plan an addendum to followed by Dr. Raza.. Current Visit: Yes Gastroenterology - PN: Subj Interval history: CC: Atypical chest pain Patient is seen, sitting up in chair eating breakfast. States he is feeling a little better today. States he is having continued dysphagia with primary complaint this morning with his pills. Patient is eaten approximately 50% of his diet today. He does state his shortness of breath is improved somewhat and denies any epigastric/chest discomfort at this time. Discussed with patient that we will proceed with EGD for possible esophageal stricture and dilation once his Plavix is able to be held 5 days. We can do this on an outpatient basis once he convalesces from his hospital stay. Patient agrees with this plan. Abdomen is soft, nontender. ROS: Denies shortness of breath or chest pain Exam (Progress Note) - Constitutional Vitals: Period Temp Pulse Resp BP Sys/Bah Pulse Ox Last 24 Hr 96.7 F-98.6 F 53-86 17-20 96-149/53-72 95-100 General appearance: normal weight, no acute distress - Head Head exam: Present: normal inspection, normocephalic - Eye Eye exam: Present: other (Lids and conjunctive are unremarkable). Absent: scleral icterus - ENT ENT exam: Present: normal exam, normal oropharynx - Neck Neck exam: Present: normal inspection - Respiratory Respiratory exam: Present: clear to auscultation bilaterally. Absent: rales, rhonchi, wheezes - Cardiovascular Cardiovascular exam: Present: regular rate and rhythm. Absent: diastolic murmur , JVD, systolic murmur - GI/Abdominal GI/Abdominal exam: Present: normal bowel sounds, soft. Absent: ascites, distended, mass, organomegaly, tenderness - Extremities Exam Extremities exam: Present: normal inspection, full ROM - Back Exam Back exam: Present: normal inspection - Neurological Exam Neurological exam: Present: alert, oriented X3 - Psychiatric Psychiatric exam: Present: normal affect, normal mood - Skin Skin exam: Present: normal color, warm, dry Results - Labs CBC & BMP: 05/05/17 03:30 05/05/17 03:30 Lab Results: I have reviewed the past 24 hour labs Specialty Discharge - Follow Up or Referrals Follow up with: Wayne Goyal [Physician] - 05/18/17 9:45 am
[2017-05-05] MEDS ORDERED: POTASSIUM CHLORIDE 20 MEQ TABLET PO ONE (10:11)
[2017-05-05] MEDS: ALBUTEROL/IPRATROPIUM 3 ML NEB RESP TX PRN (10:41)
[2017-05-05] MEDS: SPIRONOLACTONE 25 MG TABLET PO SCH (16:37)
[2017-05-05] MEDS: FUROSEMIDE 40 MG/4 ML VIAL IV SCH (16:56)
[2017-05-05] MEDS: ASCORBIC ACID 500 MG TABLET PO SCH (22:01)
[2017-05-05] MEDS: AMITRIPTYLINE 50 MG TABLET PO SCH (22:02)
[2017-05-05] MEDS: DOCUSATE SODIUM 100 MG CAPSULE PO SCH (22:02)
[2017-05-06] MEDS: LEVOFLOXACIN INJ 750 MG in PREMIX 1 EACH IV SCH (05:22)
[2017-05-06] MEDS: ENOXAPARIN 40 MG/0.4 ML SYRINGE SUBCUT SCH (05:23)
[2017-05-06 06:14] LABS: Magnesium 2.3 MG/DL (1.8-2.4); Osmolality,Calculated 273.2 MOS/KG (273-304); Potassium 3.4 MMOL/L (3.5-5.1)
--- NOTE | 2017-05-06 07:48 | EKG Report ---
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
--- NOTE | 2017-05-06 07:55 | Pulmonology Progress Note ---
Pulmonary - PN: Subj Interval history: Patient still having some intermittent chest pain and is short of breath. He has bibasilar crackles. I do think there is an element of congestive heart failure. He has had Lasix. He is for cardiac catheterization tomorrow. 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 We will wait on further evaluation there until his cardiac catheterization has been completed. From a pulmonary standpoint, there is nothing really to add at this point. I will sign off. Please call if needed further. 05/05/2017 checked back in on patient. He was having to sleep sitting up. He still has bibasilar crackles. I think he needs to be diuresed a little further. I think there is an element of congestive heart failure. His catheterization was negative. Thoracic surgery plans to watch the anterior mediastinal mass. I agree with that plan. I think it is likely to be benign. It is not symptomatic at present. I did resume his IV Lasix. If he is to be discharged he would need to be on oral Lasix. 05/06/2017 patient still has basilar crackles. His weight is actually gone up despite getting IV Lasix. He reports difficulty emptying his bladder. Does have a history of BPH and takes medication for that. Will ask for bladder echo post voiding. May need urology to recheck Exam (Progress Note) - Constitutional Vitals: Period Temp Pulse Resp BP Sys/Bah Pulse Ox Last 24 Hr 96.9 F-97.6 F 53-75 18-20 109-149/45-76 95-99 Exam: Vital signs normal. Pupils react to light. Throat is clear. Neck supple no bruits. Chest reveals bibasilar crackles. Heart normal rate and rhythm no murmurs. Abdomen soft nontender no masses. Extremities no clubbing cyanosis or edema. Calves nontender. 1+ edema. Little change from yesterday. Results - Labs CBC & BMP: 05/05/17 03:30 05/06/17 05:23 Lab Results: I have reviewed the past 24 hour labs Assessment and Plan (1) Mediastinal mass Status: Chronic Assessment and plan: Difficult to tell how long this has been present as it would not be visible on plain chest x-ray. I do not think he is having any symptoms referable to this area. My suggestion would be to have a thoracic surgeon look at him. He may want to follow it, get it needle biopsied, or do a mediastinoscopy. This is not an area of the chest that I could get to with a bronchoscope. The differential diagnosis for an anterior mediastinal mass would be thymoma, teratoma, substernal thyroid. Of those I think a teratoma would be quite unlikely. The lesion does not appear to be continuous with his thyroid. It does not appear to be adenopathy. I would workup his cardiac situation first as I think this is the primary cause of his symptoms. Ask Dr. Goyal to review the CT and patient on Thursday05/03/2017 Dr. Goyal has seen the patient. He will follow-up on this. His inclination is that this may be a pericardial cyst. That would fit with the appearance of it and the fact that he is really not symptomatic from that. Plans are to proceed with cardiac catheterization tomorrow. 05/05/2017 plans are to follow mediastinal mass radiographically. I agree with that. 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 A malignancy is much less likely since he is asymptomatic with a lesion of this size. 05/06/2017 planned for radiographic follow-up. Current Visit: Yes (2) New onset a-fib Status: Acute Assessment and plan: Being addressed by cardiology. Current Visit: Yes (3) CHF (congestive heart failure) Status: Chronic Assessment and plan: Certainly the small pleural effusions, basilar crackles, dyspnea on exertion, orthopnea, elevated BNP of close to 400 all would be suggestive of congestive heart failure. Cardiology is going to work him up to find the cause for this. This should be done prior to any evaluation of the anterior mediastinal mass. 05/03/2017 he is getting IV Lasix. Still has some basilar crackles and dyspnea. Defer to cardiology. 05/05/2017 I have resumed Lasix. It was held for a couple of days. He still has crackles, edema, and exertional dyspnea. His CT scan showed small bilateral pleural effusions which would be most consistent with congestive heart failure. 05/06/2017 despite IV Lasix the patient is not losing weight. Has difficulty voiding. May be having problems with his prostate. Still has bibasilar crackles. Current Visit: Yes Specialty Discharge - Follow Up or Referrals Follow up with: Wayne Goyal [Physician] - 05/18/17 9:45 am
--- NOTE | 2017-05-06 08:19 | Family Practice Progress Note ---
Family Practice - PN: Subj Interval history: Patient states he is feeling a bit better this morning. He still has some shortness of breath when he exerts himself. Still quite weak when he tries to ambulate. I offered to send him to a swing bed which I think would probably be a good idea for him until he gets stronger. He is certainly quite debilitated. He will ponder this option. Exam (Progress Note) - Constitutional Vitals: Period Temp Pulse Resp BP Sys/Bah Pulse Ox Last 24 Hr 96.9 F-97.6 F 58-75 18-20 109-143/45-76 95-99 Exam: Objective reveals a well-developed gentleman who is able to give an excellent history. He is sitting up in his chair and appears quite comfortable. He has no overt dyspnea. Cardiovascular: The heart rates regular without murmurs or gallops. Respiratory: The lungs are clear to auscultation bilaterally with no rales, rhonchi or wheeze. Abdomen: Abdomen is soft and nontender to palpation. Results - Labs CBC & BMP: 05/05/17 03:30 05/06/17 05:23 Lab Results: I have reviewed the past 24 hour labs Assessment and Plan (1) Mediastinal mass Status: Chronic Assessment and plan: 05/04/2017: Patient has been evaluated by thoracic surgery and is pondering his options. 05/05/2017: Patient still pondering his options. 05/06/2017: Patient will require repeat CT scan in 6 weeks. Current Visit: Yes (2) Atypical chest pain Status: Resolved Assessment and plan: 05/04/2017: Patient's coronary arteries are free of disease. Will ask GI to see him as well. 05/05/2017: Patient will be scheduled for upper endoscopy sometime in the future. 05/06/2017: Patient will get EGD in the future. Current Visit: Yes (3) Pneumonia Status: Acute Assessment and plan: 05/06/2017: Patient is clearly improving clinically. Plan for discharge in a.m. if he continues to do well. Current Visit: Yes Quality Measures - Stroke Symptom Onset Unknown: No Specialty Discharge - Follow Up or Referrals Follow up with: Wayne Goyal [Physician] - 05/18/17 9:45 am
[2017-05-06] MEDS: POTASSIUM CHLORIDE 20 MEQ TABLET PO SCH (08:42)
[2017-05-06] MEDS: MULTIVITAMIN (CENTRUM) TABLET PO SCH (08:42)
[2017-05-06] MEDS: SUCRALFATE 1 GM TABLET PO SCH ×4 (08:42→21:12)
[2017-05-06] MEDS: PANTOPRAZOLE 40 MG TABLET PO SCH ×2 (08:42→21:12)
[2017-05-06] MEDS: TAMSULOSIN 0.4 MG CAPSULE PO SCH (08:42)
[2017-05-06] MEDS: ASCORBIC ACID 500 MG TABLET PO SCH ×2 (08:42→21:12)
[2017-05-06] MEDS: FUROSEMIDE 40 MG/4 ML VIAL IV SCH ×2 (08:43→15:22)
[2017-05-06] MEDS: SPIRONOLACTONE 25 MG TABLET PO SCH (08:43)
[2017-05-06] MEDS: NEBIVOLOL 5 MG TABLET PO SCH (08:43)
[2017-05-06] MEDS: FINASTERIDE 5 MG TABLET PO SCH (08:43)
[2017-05-06] MEDS: LINACLOTIDE 145 MCG CAPSULE PO SCH (08:43)
--- NOTE | 2017-05-06 09:37 | Case Mgmt Physician Query Form ---
TB Signs and Symptoms Screening ([place]) INSTRUCTIONS: To be completed annually on residents/staff with a significant Tuberculin Skin Test (TST) upon admission/hire or a prior significant TST. To be completed on all staff at hire. Please respond to each listed symptom with an (X) in either the "YES" or "NO" box. Do you currently have any of the following symptoms: YES NO (x ) ( ) A cough If yes, is it: ( ) Productive ( ) Non- productive ( ) (x ) Hemoptysis (spitting up blood) (x ) ( ) Chest pains ( ) (x ) Weight Loss ( ) (x ) Fever ( ) (x ) Night Sweats (x ) ( ) Weakness (x ) ( ) Loss of Appetite (x ) ( ) Difficulty Breathing If you answered YES" to any of the above questions, how long have symptoms been present? Comments: If you have any questions ,please contact me. Thank You TRACIE Richmond, [employer] Email :[email or web address]
[2017-05-06] MEDS ORDERED: TUBERCULIN SKIN TEST 0.1 ML SYRINGE INTRADERM ONE (10:30)
--- NOTE | 2017-05-06 10:47 | Gastrointestinal Progress Note ---
Assessment and Plan (1) Atypical chest pain Status: Resolved Assessment and plan: 05/06-No complaints of pain. Continued dysphagia. Note below where plavix was not initiated, pt refused. Can plan tentatively at this time to proceed with EGD tomorrow prior to discharge. Pt agrees to proceed. Plan and addendum to follow by Dr Raza. 05/05-No complaints of pain at this time. Still continued complaints of dysphagia especially pills. Continue on Plavix at this time. Discussed with patient can schedule outpatient EGD after discharge once Plavix can be held. Further plan an addendum to followed by Dr. Raza 05/04-reports of recent onset epigastric pain, not associated with any other factors, with increased dysphagia and GERD. Heart catheterization today with findings as below. Mildly anemic as noted below with no prior history of this. Recent initiation of Plavix therapy for atrial fibrillation. Continue Protonix. Plan an addendum to followed by Dr. Raza.. Current Visit: Yes Gastroenterology - PN: Subj Interval history: CC: Dysphagia Pt is seen awake and alert receiving morning care. States he is feeling well today. He denies any abdominal pain, nausea or vomiting. He is tolerating his diet however is having continued dysphagia to pills and some solids. Reviewed patients chart and also discussed with nursing staff pt regarding pt having Plavix initiated with the questionable atrial fibrillation on admission. Pt states that he refused to take the Plavix and no documentation able to be found where this was ever given. Pt is for possible discharge to [facility] tomorrow for therapy. Discussed with pt and he is agreeable to proceed with EGD tomorrow for possible esophageal dilation prior to discharge. Abdomen is soft, nontender. ROS: Denies SOB or chest pain Exam (Progress Note) - Constitutional Vitals: Period Temp Pulse Resp BP Sys/Bah Pulse Ox Last 24 Hr 96.9 F-97.6 F 60-75 18-20 109-143/45-76 95-99 General appearance: normal weight, no acute distress - Head Head exam: Present: normal inspection, normocephalic - Eye Eye exam: Present: other (lids and conjunctiva are unremarkable). Absent: scleral icterus - ENT ENT exam: Present: normal exam, normal oropharynx - Neck Neck exam: Present: normal inspection - Respiratory Respiratory exam: Present: clear to auscultation bilaterally. Absent: rales, rhonchi, wheezes - Cardiovascular Cardiovascular exam: Present: regular rate and rhythm. Absent: diastolic murmur , JVD, systolic murmur - GI/Abdominal GI/Abdominal exam: Present: normal bowel sounds, soft. Absent: ascites, distended, mass, organomegaly, tenderness - Extremities Exam Extremities exam: Present: normal inspection, full ROM - Back Exam Back exam: Present: normal inspection - Neurological Exam Neurological exam: Present: alert, oriented X3 - Psychiatric Psychiatric exam: Present: normal affect, normal mood - Skin Skin exam: Present: normal color, warm, dry Results - Labs CBC & BMP: 05/05/17 03:30 05/06/17 05:23 Lab Results: I have reviewed the past 24 hour labs Specialty Discharge - Follow Up or Referrals Follow up with: Wayne Goyal [Physician] - 05/18/17 9:45 am
[2017-05-06] MEDS ORDERED: POTASSIUM CHLORIDE 20 MEQ TABLET PO ONE (14:09)
--- NOTE | 2017-05-06 15:28 | Cardiology Progress Note ---
Benjamin Bacon Lesley, TINY, am scribing for, and in the presence of, Shane Gomez MD 15:28. Assessment and Plan - Time spent with patient Time spent with patient: Greater than 30 minutes (1) Atypical chest pain Status: Resolved Current Visit: Yes (2) Mediastinal mass Status: Chronic Current Visit: Yes (3) Shortness of breath Status: Resolved Current Visit: Yes (4) GERD (gastroesophageal reflux disease) Status: Chronic Current Visit: Yes (5) Hypertension Status: Chronic Current Visit: Yes Cardiology - PN: Subj Interval history: ENVIRONMENTAL PROPERTY ASSESSOR: None Summary: Mr. Buck is an 81 WM, without prior cardiac history. Risk factors are significant for hypertension and advanced age. The patient presented to the ER with complaints of dyspnea, orthopnea, and a decline in exercise tolerance with increased HAWKINS over a couple of months. Symptoms had escalated and brought him to the emergency room for further evaluation. Upon admission he was diagnosed with possible atrial fibrillation with controlled ventricular response. EKGs were somewhat difficult to discern, however the patient did have an irregular rhythm he was also diagnosed with a mediastinal mass. 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 Left heart cath revealed mild coronary atherosclerosis, right dominant system, EF 55%. Echocardiogram: Normal LV systolic and diastolic function, ejection fraction 55%; Mild concentric left ventricular hypertrophy; Mild biatrial enlargement; Mild right ventricular dilation; Mild mitral, tricuspid and pulmonic regurgitation; Aortic sclerosis without stenosis. MAY 05, 2017: Patient sitting up in a chair eating breakfast. He still has some mild basilar crackles, with exertional dyspnea. CT scan showed small bilateral pleural effusions, systolic congestive heart failure. IV Lasix was restarted today and potassium increased to 40 mEq daily. Blood pressure controlled, telemetry shows sinus rhythm rate in the 50s. Labs reviewed: Sodium 131, Potassium 3.2, creatinine 1.3, BUN 28. He expresses a desire to be discharged to swing bed unit for rehab. IMPRESSION AND PLAN: 1. DYSPNEA -some improvement, oxygen as needed. 2. CONGESTIVE HEART FAILURE -IV Lasix restarted. 3. MEDIASTINAL MASS -monitored by CV surgeon. 4. ATRIAL FIBRILLATION -questionable new onset Exam (Progress Note) - Constitutional Vitals: Period Temp Pulse Resp BP Sys/Bah Pulse Ox Last 24 Hr 96.7 F-98.6 F 53-86 17-20 108-149/59-72 95-100 Exam: General: Appears well with no apparent distress. Pleasant and cooperative. Appears comfortable. HEENT: PERRL, normocephalic, atraumatic. Mucous membranes moist. No jaundice noted. Conjunctiva moist and clear, sclerae anicteric. Neck: No JVD/HJR, no thyromegaly or lymphadenopathy noted. No carotid bruit appreciated. Cardiac: Regular rate and rhythm. No murmur rub or gallop. PMI is nondisplaced. Lungs: Clear to auscultation without accessory muscle use to assist the respiratory pattern. Oxygen in use via nasal cannula at 2 L. Abdomen: Soft, bowel sounds normoactive. Nontender and nondistended. No abdominal bruit or thrill noted. No masses noted. Musculoskeletal: fluid collection. Decreased range of motion is noted. Extremities: No clubbing, cyanosis noted. Right lower extremity trace edema noted. Upper extremity pulses 2+. Lower extremity pulses 2+. Capillary refill less than 3 seconds. Skin: No unusual lesions or rashes. No skin breakdown appreciated. Neuro: Awake, alert and oriented 3. Moves all extremities well without hemiparesis or paralysis. No essential tremor is appreciated. Result/EKG - Labs CBC & BMP: 05/05/17 03:30 05/06/17 05:23 Lab Results: I have reviewed the past 24 hour labs Labs: Laboratory Results - last 24 hr 05/05/17 05/05/17 03:30 03:30 WBC 11.1 RBC 3.79 L Hgb 11.7 L Hct 33.4 L MCV 88.1 MCH 31 MCHC 35.0 RDW 12.5 Plt Count 374 MPV 9.4 L Neut % (Auto) 71.5 Lymph % (Auto) 10.6 L [place] % (Auto) 12.4 Eos % (Auto) 2.2 Baso % (Auto) 1.4 H Neut # (Auto) 8.0 H Lymph # (Auto) 1.2 L [place] # (Auto) 1.4 H Eos # (Auto) 0.3 Baso # (Auto) 0.2 Immature Gran % 1.9 Nucleated RBC % 0.0 Immature Gran # 0.21 Nucleated RBCs # 0.00 Immature Plt Fraction 0.0 Sodium 131 L Potassium 3.2 L Chloride 91 L Carbon Dioxide 30 Anion Gap 13.2 BUN 28 H Creatinine 1.30 GFR Calculation 67 BUN/Creatinine Ratio 21.00 H Glucose 97 Calculated Osmolality 267.7 L Calcium 8.6 - EKG EKG shows: atrial fibrillation Quality Measures - Stroke Symptom Onset Unknown: No Specialty Discharge - Follow Up or Referrals Follow up with: Wayne Goyal [Physician] - 05/18/17 9:45 am I, Shane Gomez MD, personally performed the services described in this documentation, ascribed by Massiel Alexander NP in my presence, and it is both accurate and complete [id number] .
--- NOTE | 2017-05-06 15:43 | Cardiology Progress Note ---
Benjamin Bacon Lesley, NP, am scribing for, and in the presence of, Shane Gomez MD 15:43. Assessment and Plan - Time spent with patient Time spent with patient: Greater than 30 minutes (Record review, assessment, and documentation) (1) Atypical chest pain Status: Resolved Assessment and plan: SEE PLAN LISTED BELOW Current Visit: Yes (2) Mediastinal mass Status: Chronic Assessment and plan: SEE PLAN LISTED BELOW Current Visit: Yes (3) Shortness of breath Status: Resolved Assessment and plan: SEE PLAN LISTED BELOW Current Visit: Yes (4) GERD (gastroesophageal reflux disease) Status: Chronic Assessment and plan: SEE PLAN LISTED BELOW Current Visit: Yes (5) Hypertension Status: Chronic Assessment and plan: SEE PLAN LISTED BELOW Current Visit: Yes (6) Atrial fibrillation Status: Acute Assessment and plan: SEE PLAN LISTED BELOW Current Visit: Yes Cardiology - PN: Subj Interval history: TOUR ACTOR: None Summary: Mr. Chatman is an 81 WM, without prior cardiac history. Risk factors are significant for hypertension and advanced age. The patient presented to the ER with complaints of dyspnea, orthopnea, and a decline in exercise tolerance with increased HAWKINS over a couple of months. Symptoms had escalated and brought him to the emergency room for further evaluation. Upon admission he was diagnosed with possible atrial fibrillation with controlled ventricular response. EKGs were somewhat difficult to discern, however the patient did have an irregular rhythm he was also diagnosed with a mediastinal mass. 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 Left heart cath revealed mild coronary atherosclerosis, right dominant system, EF 55%. Echocardiogram: Normal LV systolic and diastolic function, ejection fraction 55%; Mild concentric left ventricular hypertrophy; Mild biatrial enlargement; Mild right ventricular dilation; Mild mitral, tricuspid and pulmonic regurgitation; Aortic sclerosis without stenosis. MAY 05, 2017: Patient sitting up in a chair eating breakfast. He still has some mild basilar crackles, with exertional dyspnea. CT scan showed small bilateral pleural effusions, systolic congestive heart failure. IV Lasix was restarted today and potassium increased to 40 mEq daily. Blood pressure controlled, telemetry shows sinus rhythm rate in the 50s. Labs reviewed: Sodium 131, Potassium 3.2, creatinine 1.3, BUN 28. MAY 06, 2017: Patient sitting up in chair this morning, no complaints of chest pain. He is feeling dramatically better today. He reports he was able to walk down the [place] and back with his walker without dyspnea. This is a dramatic improvement from his admission. Continues to be hypokalemic, we have replaced potassium and spironolactone initiated. Chads vascular score 3, EKG reveals Afib with rate controlled in the 50s-60s. Will withhold anticoagulation at this point due to advanced age and fall risk, discussed with patient and family today at bedside who do not wish for the patient to be treated with anticoagulants. The patient is an tips of pending discharge to swing bed tomorrow. From a cardiac standpoint I think that would be fine. IMPRESSION AND PLAN: 1. DYSPNEA -much better. Continue current treatment. 2. CONGESTIVE HEART FAILURE -IV Lasix restarted, spironolactone initiated. 3. MEDIASTINAL MASS -monitored by CV surgeon. 4. ATRIAL FIBRILLATION -questionable new onset, plan to withhold anticoagulants due to advanced age and fall risk. 5. HYPOKALEMIA: This is being treated 6. ADVANCED AGE AND FRAILTY: Plan for swing bed at discharge Exam (Progress Note) - Constitutional Vitals: Period Temp Pulse Resp BP Sys/Bah Pulse Ox Last 24 Hr 96.9 F-97.6 F 60-75 18-18 109-194/45-91 94-99 Exam: General: Appears well with no apparent distress. Pleasant and cooperative. Appears comfortable. HEENT: PERRL, normocephalic, atraumatic. Mucous membranes moist. No jaundice noted. Conjunctiva moist and clear, sclerae anicteric. Neck: No JVD/HJR, no thyromegaly or lymphadenopathy noted. No carotid bruit appreciated. Cardiac: Regular rate and rhythm. No murmur rub or gallop. PMI is nondisplaced. Lungs: Clear to auscultation without accessory muscle use to assist the respiratory pattern. Oxygen in use via nasal cannula at 2 L. Abdomen: Soft, bowel sounds normoactive. Nontender and nondistended. No abdominal bruit or thrill noted. No masses noted. Musculoskeletal: fluid collection. Decreased range of motion is noted. Extremities: No clubbing, cyanosis noted. Right lower extremity trace edema noted. Upper extremity pulses 2+. Lower extremity pulses 2+. Capillary refill less than 3 seconds. Skin: No unusual lesions or rashes. No skin breakdown appreciated. Neuro: Awake, alert and oriented 3. Moves all extremities well without hemiparesis or paralysis. No essential tremor is appreciated. Result/EKG - Labs CBC & BMP: 05/05/17 03:30 05/06/17 05:23 Lab Results: I have reviewed the past 24 hour labs Labs: Laboratory Results - last 24 hr 05/06/17 05:23 Sodium 134 L Potassium 3.4 L Chloride 95 L Carbon Dioxide 30 Anion Gap 12.4 BUN 28 H Creatinine 1.30 GFR Calculation 67 BUN/Creatinine Ratio 21.00 H Glucose 101 Calculated Osmolality 273.2 Calcium 9.0 Magnesium 2.3 - EKG EKG results: interpreted by me EKG shows: atrial fibrillation Quality Measures - Stroke Symptom Onset Unknown: No Specialty Discharge - Follow Up or Referrals Follow up with: Wayne Goyal [Physician] - 05/18/17 9:45 am I, Shane Gomez MD, personally performed the services described in this documentation, ascribed by Massiel Alexander NP in my presence, and it is both accurate and complete [id number] .
--- NOTE | 2017-05-06 17:57 | Event Note ---
[employer] would not allow me to edit Felipa Bustillos NP's note today. This is addendum to her note. Patient seen and examined. Agree with findings as noted. Patient still with dysphagia to solids. He has not been on Plavix according to his MAR. Plan EGD and possible esophageal dilation tomorrow. He is agreeable to this.
[2017-05-06] MEDS: AMITRIPTYLINE 50 MG TABLET PO SCH (21:12)
[2017-05-06] MEDS: DOCUSATE SODIUM 100 MG CAPSULE PO SCH (21:12)
[2017-05-07] MEDS: LEVOFLOXACIN INJ 750 MG in PREMIX 1 EACH IV SCH (00:55)
[2017-05-07] MEDS: ENOXAPARIN 40 MG/0.4 ML SYRINGE SUBCUT SCH (03:00)
--- NOTE | 2017-05-07 07:43 | Pulmonology Progress Note ---
Pulmonary - PN: Subj Interval history: Patient still having some intermittent chest pain and is short of breath. He has bibasilar crackles. I do think there is an element of congestive heart failure. He has had Lasix. He is for cardiac catheterization tomorrow. 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 We will wait on further evaluation there until his cardiac catheterization has been completed. From a pulmonary standpoint, there is nothing really to add at this point. I will sign off. Please call if needed further. 05/05/2017 checked back in on patient. He was having to sleep sitting up. He still has bibasilar crackles. I think he needs to be diuresed a little further. I think there is an element of congestive heart failure. His catheterization was negative. Thoracic surgery plans to watch the anterior mediastinal mass. I agree with that plan. I think it is likely to be benign. It is not symptomatic at present. I did resume his IV Lasix. If he is to be discharged he would need to be on oral Lasix. 05/06/2017 patient still has basilar crackles. His weight is actually gone up despite getting IV Lasix. He reports difficulty emptying his bladder. Does have a history of BPH and takes medication for that. Will ask for bladder echo post voiding. May need urology to recheck 05/07/2017 chest sounds a little better. Weight is down since admission. Potassium borderline low. He is to get gastroscope with dilatation of esophagus today. Plans are for discharge to [facility] later today. Chest x- ray is pending today. Will review when available. Exam (Progress Note) - Constitutional Vitals: Period Temp Pulse Resp BP Sys/Bah Pulse Ox Last 24 Hr 96.9 F-97.7 F 56-65 18-20 107-194/56-91 94-99 Exam: Vital signs normal. Pupils react to light. Throat is clear. Neck supple no bruits. Chest reveals few bibasilar crackles. Heart normal rate and rhythm no murmurs. Abdomen soft nontender no masses. Extremities no clubbing cyanosis or edema. Calves nontender. 1+ edema. Little change from yesterday. Results - Labs CBC & BMP: 05/05/17 03:30 05/06/17 05:23 Lab Results: I have reviewed the past 24 hour labs - Diagnostic Findings Procedure: Chest x-ray: pending Assessment and Plan (1) Mediastinal mass Status: Chronic Assessment and plan: Difficult to tell how long this has been present as it would not be visible on plain chest x-ray. I do not think he is having any symptoms referable to this area. My suggestion would be to have a thoracic surgeon look at him. He may want to follow it, get it needle biopsied, or do a mediastinoscopy. This is not an area of the chest that I could get to with a bronchoscope. The differential diagnosis for an anterior mediastinal mass would be thymoma, teratoma, substernal thyroid. Of those I think a teratoma would be quite unlikely. The lesion does not appear to be continuous with his thyroid. It does not appear to be adenopathy. I would workup his cardiac situation first as I think this is the primary cause of his symptoms. Ask Dr. Goyal to review the CT and patient on Thursday05/03/2017 Dr. Goyal has seen the patient. He will follow-up on this. His inclination is that this may be a pericardial cyst. That would fit with the appearance of it and the fact that he is really not symptomatic from that. Plans are to proceed with cardiac catheterization tomorrow. 05/05/2017 plans are to follow mediastinal mass radiographically. I agree with that. 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 A malignancy is much less likely since he is asymptomatic with a lesion of this size. 05/06/2017 planned for radiographic follow-up. 05/07/2017 needs follow-up CT in 6 weeks or so. Current Visit: Yes (2) New onset a-fib Status: Acute Assessment and plan: Being addressed by cardiology. Current Visit: Yes (3) CHF (congestive heart failure) Status: Chronic Assessment and plan: Certainly the small pleural effusions, basilar crackles, dyspnea on exertion, orthopnea, elevated BNP of close to 400 all would be suggestive of congestive heart failure. Cardiology is going to work him up to find the cause for this. This should be done prior to any evaluation of the anterior mediastinal mass. 05/03/2017 he is getting IV Lasix. Still has some basilar crackles and dyspnea. Defer to cardiology. 05/05/2017 I have resumed Lasix. It was held for a couple of days. He still has crackles, edema, and exertional dyspnea. His CT scan showed small bilateral pleural effusions which would be most consistent with congestive heart failure. 05/06/2017 despite IV Lasix the patient is not losing weight. Has difficulty voiding. May be having problems with his prostate. Still has bibasilar crackles. 05/07/2017 congestive heart failure is better. Chest x-ray today pending. Agree with plans for discharge. Current Visit: Yes Specialty Discharge - Follow Up or Referrals Follow up with: Wayne Goyal [Physician] - 05/18/17 9:45 am
--- NOTE | 2017-05-07 08:09 | Discharge Summary ---
Hospital Course - Hospital Course Hospital Course: Patient 79-year-old gentleman was admitted to the hospital through the emergency room with increasing shortness of breath and dyspnea on exertion. Patient was seen by cardiology and pulmonary. Patient was found to have small bibasilar infiltrates. He underwent left heart catheterization and echocardiogram which showed no evidence of coronary artery disease or significant reduction in ejection fraction. Patient did improve with IV diuretic therapy and is feeling much better at this point. Patient does have some difficulty with dysphagia and is to have EGD with dilatation on this morning. Patient be discharged home today in follow-up with Dr. Moseley in 2 weeks. Patient was found to have a mass in his mediastinum that appeared to emanate from the pericardium. This appeared to be a benign mass but repeat CT has been ordered for [address] Moseley will follow up on the results of this. Diagnosis - Discharge Diagnosis (1) Mediastinal mass Status: Chronic (2) Atypical chest pain Status: Resolved (3) Pneumonia Status: Acute Specialty Discharge - Follow Up or Referrals Follow up with: Wayne Goyal [Physician] - 05/18/17 9:45 am Discharge Plan - Discharge Data Disposition: Disch/Xfer to Snf Condition at Discharge: Stable Discharge Diet: advance to your usual diet Activity: ambulate only with your walker, as per physical therapy Hygiene: no restrictions Weight Bearing at Discharge: full weight bearing Contact your physician if you experience:: fever over 101, Shortness of breath - Discharge Medications New Ascorbic Acid Tab [Vitamin C Tab] 1,000 mg PO BID tablet Furosemide Tab [Lasix Tab] 40 mg PO DAILY #30 tablet Levofloxacin Tab [Levaquin Tab] 500 mg PO DAILY #7 tablet Nebivolol [Bystolic] 5 mg PO DAILY tablet Potassium Chloride Cap/Tab [K Dur] 40 meq PO DAILY tablet Spironolactone [Aldactone] 25 mg PO DAILY tablet Albuterol/Ipratropium Neb [Duoneb] 3 ml RESP TX RT Q6H PRN PRN Reason: Shortness Of Breath/Wheezing Finasteride [Proscar] 5 mg PO DAILY tablet Linaclotide [Linzess] 72 mcg PO AC BREAKFAST capsule Tamsulosin [Flomax] 0.4 mg PO DAILY capsule Continue amLODIPine [Norvasc] 5 mg PO BID Pantoprazole Tab [Protonix Tab] 40 mg PO BID Tamsulosin [Flomax] 0.4 mg PO PC SUPPER Amitriptyline [Elavil] 50 mg PO BEDTIME Chlorthalidone 25 mg PO QAM Multivitamin [Multivitamins] 1 each PO QAM Docusate Sodium 100 mg PO BEDTIME Finasteride 5 mg PO QPM Acetaminophen Tab [Tylenol Tab] 325 - 650 mg PO QOTHER DAY PRN PRN Reason: Pain Sucralfate Tab [Carafate Tab] 1 gm PO QID Discontinued Carvedilol 6.25 mg PO BID - Follow Up or Referral Follow Up: Wayne Goyal [Physician] - 05/18/17 9:45 am - Forms/Instructions Exam - Constitutional Vitals: Period Temp Pulse Resp BP Sys/Bah Pulse Ox Last 24 Hr 96.9 F-97.7 F 56-65 18-20 107-194/56-91 94-99 Exam: Objective reveals a well-developed gentleman who is able to give an excellent history. He is sitting up in his chair and appears quite comfortable. He has no overt dyspnea. Cardiovascular: The heart rates regular without murmurs or gallops. Respiratory: The lungs are clear to auscultation bilaterally with no rales, rhonchi or wheeze. Abdomen: Abdomen is soft and nontender to palpation. Discharge Results Procedures and tests throughout hospitalization: Pending Orders 05/03/17 16:22 Occult Blood, Stool Routine 05/07/17 04:00 XR chest 2V IN AM Patient does have bladder scan pending. Patient is also to have EGD with dilatation today. DS: Provider Date of admission: 05/01/17 23:01 Primary care physician: . No PCP Attending physician on admission: Chapito Moseley MD Consults: 05/02/17 08:53 Consult to Physician [CONS] Routine Comment: Consulting Provider: Cardiology - [facility] 05/02/17 08:54 Consult to Physician [CONS] Routine Comment: mediastium mass Consulting Provider: Chidi Kelsey 05/02/17 09:00 Consult to Dietitian [CONS] Routine Reason for Dietitian: Diet Instruction Consult Comment: inform pt of hiatal hernia diet 05/02/17 11:52 Consult to Physician [CONS] Routine Comment: Dr. Goyal can see Thursday Consulting Provider: Consult to Specialist Group: Cardiothoracic Surgery When should Consulting Provider be notified: In am 05/02/17 16:11 Consult to Physician [CONS] Routine Comment: mediastinal mass Consulting Provider: Wayne Goyal When should Consulting Provider be notified: In am 05/04/17 13:39 Consult to Physician [CONS] Routine Comment: Consulting Provider: Jacob Raza Consult to Specialist Group: Gastroenterology Person Notified: MICHELL Date Notified: 05/04/17 Time Notified: 13:50 05/05/17 07:46 Consult to Physical Therapy [CONS] Routine Reason for Physical Therapy: Gait Training 05/06/17 07:18 Consult to Case Mgmt/Social Srvs [CONS] Routine Reason for Case Mgmt/Social Srvs: Swingbed/SNF/Skilled Nursing Consult Comment: Swing bed at [facility] Discharging clinician: Omar Leon MD Expected date of discharge: 05/07/17
--- NOTE | 2017-05-07 08:49 | XRay Report ---
XR chest 2V Date: 05/07/2017 4:00 AM History: CHF Comparison: 05/04/2017 Technique: PA and lateral chest Findings: The heart is minimally enlarged with calcified granulomata/nodes. Minimal atelectasis at the lung bases with persistent small pleural effusions. Chronic L1 compression fracture. Impression: COPD with minimal atelectasis remaining at the lung bases with small pleural effusions. Chronic L1 compression fracture. PROCEDURE INTERPRETED AT [facility] DEPARTMENT OF RADIOLOGY Final Report Signed by: Dr. Shanique Kidd
[2017-05-07] MEDS: FUROSEMIDE 40 MG/4 ML VIAL IV SCH (08:51)
[2017-05-07] MEDS: SUCRALFATE 1 GM TABLET PO SCH ×2 (10:22→15:25)
[2017-05-07] MEDS ORDERED: PROPOFOL 200 MG/20 ML VIAL IV ONE (12:01)
[2017-05-07] MEDS ORDERED: LIDOCAINE 100 MG/5 ML SYRINGE ONE (12:01)
[2017-05-07] MEDS ORDERED: ETOMIDATE 20 MG/10 ML VIAL IV ONE (12:01)
--- NOTE | 2017-05-07 12:08 | History and Physical Update ---
History and Physical Update - History and Physical H&P was reviewed, the patient examined and there: are no changes in the patients condition since last H&P was completed. - Physical Exam Mental Status: alert and oriented Heart: regular rate and rhythm Lung: clear to auscultation Abdomen: within normal limits Vitals: within normal limits
--- NOTE | 2017-05-07 12:22 | Operative Note ---
Date of procedure: 05/07/17 Pre-op diagnosis: Esophageal dysphagia Procedure: Procedure: Esophagogastroduodenoscopy with bougie dilation of esophagus Brief clinical abstract: 81-year-old male complains of recent dysphagia to solids. He also had been having some heartburn symptoms which have responded to PPI therapy Indication for procedure: Dysphagia Endoscopic findings:[After informed consent was obtained, the patient was placed in the left lateral decubitus position. The gastroscope was inserted in the upper esophagus under direct vision with no resistance encountered. Esophageal mucosa appeared normal down to the squamocolumnar junction. There was a mildly obstructive fibrous appearing stricture that level consistent with reflux etiology with no erosions or ulcerations. Just distal to this was a small hiatal hernia. The endoscope was advanced in the stomach which was carefully examined including retroflexed view of the cardia and fundus with no abnormality seen. The pyloric channel, duodenal bulb, second and third portion of the duodenum appeared normal. The endoscope was withdrawn and Grossman dilator size 52 Syrian inserted in the upper esophagus and advanced beyond the level of the GE junction with mild resistance encountered. No blood was noted on the dilator afterwards and he had no chest pain. He appeared to tolerate procedure well. Impression: #1 distal esophageal stricture secondary to GERD-status post bougie dilation #2 small hiatal hernia Recommendations: Continue daily PPI therapy. Redilate as needed for dysphagia symptoms. Anesthesia: MAC Surgeon / Physician: Jacob Raza Estimated blood loss: none Specimens: none sent Condition: stable Disposition: post procedure unit Results - Labs CBC & BMP: 05/05/17 03:30 05/06/17 05:23 Discharge Plan - Discharge Data Disposition: Disch/Xfer to Snf - Discharge Medications New Ascorbic Acid Tab [Vitamin C Tab] 1,000 mg PO BID tablet Furosemide Tab [Lasix Tab] 40 mg PO DAILY #30 tablet Levofloxacin Tab [Levaquin Tab] 500 mg PO DAILY #7 tablet Nebivolol [Bystolic] 5 mg PO DAILY tablet Potassium Chloride Cap/Tab [K Dur] 40 meq PO DAILY tablet Spironolactone [Aldactone] 25 mg PO DAILY tablet Albuterol/Ipratropium Neb [Duoneb] 3 ml RESP TX RT Q6H PRN PRN Reason: Shortness Of Breath/Wheezing Finasteride [Proscar] 5 mg PO DAILY tablet Linaclotide [Linzess] 72 mcg PO AC BREAKFAST capsule Tamsulosin [Flomax] 0.4 mg PO DAILY capsule Continue amLODIPine [Norvasc] 5 mg PO BID Pantoprazole Tab [Protonix Tab] 40 mg PO BID Tamsulosin [Flomax] 0.4 mg PO PC SUPPER Amitriptyline [Elavil] 50 mg PO BEDTIME Chlorthalidone 25 mg PO QAM Multivitamin [Multivitamins] 1 each PO QAM Docusate Sodium 100 mg PO BEDTIME Finasteride 5 mg PO QPM Acetaminophen Tab [Tylenol Tab] 325 - 650 mg PO QOTHER DAY PRN PRN Reason: Pain Sucralfate Tab [Carafate Tab] 1 gm PO QID Discontinued Carvedilol 6.25 mg PO BID - Follow Up or Referral Follow Up: Wayne Goyal [Physician] - 05/18/17 9:45 am Chapito Moseley MD [Physician] - 2 Weeks - Forms/Instructions
--- NOTE | 2017-05-07 12:28 | Anesthesia Post-Op ---
Anesthesia Post OP - Post Ansesthetic Evaluation Patient seen in post op: Yes Resp: within normal limits CV: within normal limits Mental: within normal limits Temp: within normal limits [id number]: within normal limits Nausea and Vomiting: within normal limits Pain: within normal limits
[2017-05-07 13:20] VITALS: BP 144/63
[2017-05-07] MEDS ORDERED: POTASSIUM CHLORIDE 20 MEQ TABLET PO ONE (14:26)
--- NOTE | 2017-05-07 14:38 | Urology Consultation ---
History of Present Illness - Data of Consult Consult date: 05/07/17 - Consult Narrative History of present illness: Mr. Chatman is a 81 year old male The patient is known to me. This 81-year-old white male has a history of BPH and is been on Flomax and Proscar for some time. The patient has noticed some decrease in the amount that he voids and he had a large residual on bladder scan about 800 cc to 900 cc when catheterized. I am going recommend that we double the Flomax dose to twice a day and start intermittent catheterization 3- 4 times daily and we can do this in the hospital or at the rehab facility. I am going order catheters to be sent to his home with the anticipation that he will be able to do self cath after discharge and I will follow him in the office in 1 month CC: Chapito Moseley MD - Home Medications and Allergies Home Medications: Home Medications Medication Instructions Recorded Confirmed Type Amitriptyline [Elavil] 50 mg PO BEDTIME 11/30/16 05/01/17 History Chlorthalidone 25 mg PO QAM 11/30/16 05/01/17 History Finasteride 5 mg PO QPM 11/30/16 05/01/17 History Pantoprazole Tab [Protonix Tab] 40 mg PO BID 11/30/16 05/01/17 History Tamsulosin [Flomax] 0.4 mg PO PC SUPPER 11/30/16 05/01/17 History amLODIPine [Norvasc] 5 mg PO BID 11/30/16 05/01/17 History Acetaminophen Tab [Tylenol Tab] 325 - 650 mg PO QOTHER DAY PRN 03/30/17 History Docusate Sodium 100 mg PO BEDTIME 03/30/17 05/01/17 History Multivitamin [Multivitamins] 1 each PO QAM 03/30/17 05/01/17 History Sucralfate Tab [Carafate Tab] 1 gm PO QID 05/01/17 05/01/17 History Albuterol/Ipratropium Neb [Duoneb] 3 ml RESP TX RT Q6H PRN 05/07/17 Rx Ascorbic Acid Tab [Vitamin C Tab] 1,000 mg PO BID tablet 05/07/17 Rx Finasteride [Proscar] 5 mg PO DAILY tablet 08/31/17 Rx Furosemide Tab [Lasix Tab] 40 mg PO DAILY #30 tablet 05/07/17 Rx Levofloxacin Tab [Levaquin Tab] 500 mg PO DAILY #7 tablet 05/07/17 Rx Linaclotide [Linzess] 72 mcg PO AC BREAKFAST capsule 05/07/17 Rx Nebivolol [Bystolic] 5 mg PO DAILY tablet 05/07/17 Rx Potassium Chloride Cap/Tab [K Dur] 40 meq PO DAILY tablet 05/07/17 Rx Spironolactone [Aldactone] 25 mg PO DAILY tablet 05/07/17 Rx Tamsulosin [Flomax] 0.4 mg PO DAILY capsule 05/07/17 Rx Allergies/Adverse Reactions: Allergies Allergy/AdvReac Type Severity Reaction Status Date / Time gabapentin [From Neurontin] Allergy Severe Diarrhea Verified 05/01/17 19:05 latex AdvReac Redness of Verified 05/01/17 19:05 Skin Medical,Surgical,& Family Hx - Medical History Cardio: History of: CHF, Hypertension Neurology: History of: TIA No history of: Seizures Endocrine: No history of: Diabetes Mellitus (IDDM), Diabetes Mellitus (NIDDM) Respiratory: History of: Respiratory Problems (left lung calcification 3.5cm) Genitourinary: History of: Prostate Problems (enlarged) Gastrointestinal: History of: GERD, GI Problems (Hital hernia) Musculoskeletal: History of: Back/Neck Problems (spinal stenosis/scoliosis), Musculoskeletal Problems (feet, left knee) - Surgical History Cardiac Surgeries: Patient Denies: Cardiac Catheterization Thoracic Surgeries: Patient denies;: Organ Transplant Orthopedic Surgeries: Surgical HX of;: Orthopedic Surgery (left ankle metal plate) - Family History Family History: Reports;: Family Heart Disease, Family Stroke - Social History Smoking Status: Never smoker Frequency of Alcohol Use: None Type of Drug Use: None Exam - Constitutional Vitals: Period Temp Pulse Resp BP Sys/Bah Pulse Ox Last 24 Hr 96.8 F-97.7 F 54-559 12-20 102-150/56-067 94-99 Results - Labs CBC & BMP: 05/05/17 03:30 05/06/17 05:23 Specialty Discharge - Follow Up or Referrals Follow up with: Wayne Goyal [Physician] - 05/18/17 9:45 am Chapito Moseley MD [Physician] - 2 Weeks Mani Silva MD [Physician] - 1 Month
[2017-05-07] MEDS: NEBIVOLOL 5 MG TABLET PO SCH (15:24)
[2017-05-07] MEDS: SPIRONOLACTONE 25 MG TABLET PO SCH (15:24)
[2017-05-07] MEDS: LINACLOTIDE 145 MCG CAPSULE PO SCH (15:24)
[2017-05-07] MEDS: FINASTERIDE 5 MG TABLET PO SCH (15:25)
[2017-05-07] MEDS: MULTIVITAMIN (CENTRUM) TABLET PO SCH (15:25)
[2017-05-07] MEDS: ASCORBIC ACID 500 MG TABLET PO SCH (15:25)
[2017-05-07] MEDS: POTASSIUM CHLORIDE 20 MEQ TABLET PO SCH (15:25)
[2017-05-07] MEDS: TAMSULOSIN 0.4 MG CAPSULE PO SCH (15:25)
[2017-05-07] MEDS: PANTOPRAZOLE 40 MG TABLET PO SCH (15:25)
[2017-05-07] MEDS ORDERED: TAMSULOSIN 0.4 MG CAPSULE PO SCH (21:00)
== END 2017-05-07 15:31 | DRG 286 ==
LOC: N.ED 18:47 → N.EDINP 23:01 → N.TELEN 05-02 00:02
PROVIDERS: ADMIT Internal Medicine; ATTEND Internal Medicine
PROC: CLCCHCL (ICD-10-PCS; 2017-05-04 07:45)

== ENCOUNTER 2021-07-24 10:51 | Inpatient (IN) ==
[2021-07-24 12:26] LABS: Basophils # 0.1 10*3/uL (0.0-0.2); Basophils % 0.6 % (0.0-0.8); Eosinophils # 0.2 10*3/uL (0.0-0.87); Eosinophils % 0.9 % (0.00-10.9); Hematocrit 30.9 VOL% (42.0-52.0); Hemoglobin 10.3 GM/DL (14.0-18.0); Immature Granulocytes % 1.7 %; Lymphocytes # 0.6 10*3/uL (1.4-4.0); Lymphocytes % 3.3 % (21.2-54.2); Mean Corpuscular HGB Conc 33.3 GM/DL (32-36); Mean Corpuscular Volume 89.6 FL (87-102); Mean Platelet Volume 8.6 FL (9.6-12.0); Monocytes % 6.6 % (1.7-12.7); Neutrophils % 86.9 % (38.7-73.9); Platelet Count 340 T/CUMM (130-400); Red Blood Count 3.45 MC/CUMM (3.8-5.5); Red Cell Distribution Width 13.1 % (9.3-17.3); White Blood Count 17.5 T/CUMM (4-12)
[2021-07-24 12:58] LABS: Albumin 3.4 G/DL (3.4-5.0); Bilirubin,Total 1.2 MG/DL (0.20-1.00); Calcium 9.1 MG/DL (8.5-10.1); Osmolality,Calculated 255.1 MOS/KG (273-304); Potassium 3.4 MMOL/L (3.5-5.1); Total Protein 7.1 G/DL (6.4-8.2)
[2021-07-24] MEDS ORDERED: SODIUM CHLORIDE 0.9% 500 ML IV STA (13:09)
[2021-07-24 13:17] LABS: Lymphocytes 5 % (20-55); Segmented Neutrophils 88 % (50-85); Total Cells Counted 100
[2021-07-24 13:18] LABS: Atypical Lymphocytes Few; Hypochromasia 1+; Microcytosis 1+
[2021-07-24] MEDS ORDERED: ONDANSETRON 4 MG/2 ML VIAL IV PRN (13:41)
[2021-07-24] MEDS: SODIUM CHLORIDE 0.9% 1,000 ML IV SCH (14:45)
[2021-07-24 15:12] LABS: Bacteria,Urine Occasional /HPF (Few); Bilirubin,Urine Negative (Negative); Blood, Urine Small mg/dL (Negative); Glucose,Urine (UA) Negative (Negative); Ketones,Urine Negative (Negative); Mucus,Urine Occasional /LPF (Occasional); Nitrite,Urine Negative (Negative); Protein,Urine Negative; RBC,Urine 1 /HPF (0-4); Squamous Epithelial Cell,Urine Occasional /HPF (0-10); Urine Appearance CLEAR (Clear); Urine Color Yellow (Yellow); Urine Specific Gravity 1.011 (1.001-1.035); Urine Urobilinogen < 2.0 EU/DL (0.2-1.0)
[2021-07-24] MEDS ORDERED: ENOXAPARIN 30 MG/0.3 ML SYRINGE SUBCUT SCH (18:00)
[2021-07-24] MEDS: cefTRIAXone 1,000 MG in SODIUM CHLORIDE 0.9% 100 ML IV SCH (18:30)
[2021-07-24] MEDS: DOCUSATE SODIUM 100 MG CAPSULE PO SCH (21:48)
[2021-07-24] MEDS: TAMSULOSIN 0.4 MG CAPSULE PO SCH (21:48)
[2021-07-24] MEDS: MAGNESIUM CHLORIDE 64 MG TABLET PO SCH (21:48)
[2021-07-24] MEDS: POTASSIUM CHLORIDE 20 MEQ TABLET PO SCH (21:48)
[2021-07-24] MEDS: BENZONATATE 100 MG CAPSULE PO SCH (21:48)
[2021-07-24] MEDS: AMITRIPTYLINE 50 MG TABLET PO SCH (21:48)
[2021-07-24] MEDS: SUCRALFATE 1 GM TABLET PO SCH (21:48)
[2021-07-24] MEDS: ACETAMINOPHEN 325 MG TABLET PO PRN (22:05)
[2021-07-24] MEDS ORDERED: ALBUTEROL 2.5 MG/3 ML NEB RESP TX PRN (23:00)
[2021-07-25 05:34] LABS: Basophils # 0.2 10*3/uL (0.0-0.2); Basophils % 1.6 % (0.0-0.8); Eosinophils # 0.3 10*3/uL (0.0-0.87); Eosinophils % 2.4 % (0.00-10.9); Hematocrit 27.5 VOL% (42.0-52.0); Hemoglobin 9.4 GM/DL (14.0-18.0); Immature Granulocytes % 1.5 %; Lymphocytes # 0.9 10*3/uL (1.4-4.0); Lymphocytes % 7.2 % (21.2-54.2); Mean Corpuscular HGB Conc 34.2 GM/DL (32-36); Mean Corpuscular Volume 90.2 FL (87-102); Mean Platelet Volume 8.8 FL (9.6-12.0); Monocytes % 9.3 % (1.7-12.7); Platelet Count 300 T/CUMM (130-400); Red Blood Count 3.05 MC/CUMM (3.8-5.5); Red Cell Distribution Width 13.1 % (9.3-17.3)
[2021-07-25] MEDS: SUCRALFATE 1 GM TABLET PO SCH ×2 (08:45→22:48)
[2021-07-25] MEDS: MAGNESIUM CHLORIDE 64 MG TABLET PO SCH ×2 (08:45→22:47)
[2021-07-25] MEDS: FINASTERIDE 5 MG TABLET PO SCH (08:45)
[2021-07-25] MEDS: TAMSULOSIN 0.4 MG CAPSULE PO SCH ×2 (08:45→22:47)
[2021-07-25] MEDS: BENZONATATE 100 MG CAPSULE PO SCH ×3 (08:45→22:47)
[2021-07-25] MEDS: PANTOPRAZOLE 40 MG TABLET PO SCH (08:46)
[2021-07-25] MEDS: LORATADINE 10 MG TABLET PO SCH (08:46)
[2021-07-25] MEDS: DOCUSATE SODIUM 100 MG CAPSULE PO SCH ×2 (08:46→22:46)
[2021-07-25] MEDS: POTASSIUM CHLORIDE 20 MEQ TABLET PO SCH ×2 (08:46→22:48)
[2021-07-25 09:00] LABS: Bilirubin,Total 0.4 MG/DL (0.20-1.00); Calcium 9.2 MG/DL (8.5-10.1); Osmolality,Calculated 260.4 MOS/KG (273-304); Potassium 2.9 MMOL/L (3.5-5.1); Total Protein 6.4 G/DL (6.4-8.2)
[2021-07-25] MEDS ORDERED: PANTOPRAZOLE 40 MG TABLET PO SCH (09:00)
[2021-07-25] MEDS: POTASSIUM CHLORIDE 20 MEQ TABLET PO PRN ×4 (11:04→17:34)
[2021-07-25] MEDS: SODIUM CHLORIDE 0.9% 1,000 ML IV SCH (18:31)
[2021-07-25] MEDS: cefTRIAXone 1,000 MG in SODIUM CHLORIDE 0.9% 100 ML IV SCH (22:46)
[2021-07-25] MEDS: ENOXAPARIN 40 MG/0.4 ML SYRINGE SUBCUT SCH (22:46)
[2021-07-25] MEDS: AMITRIPTYLINE 50 MG TABLET PO SCH (22:47)
[2021-07-25] MEDS: ACETAMINOPHEN 325 MG TABLET PO PRN (22:56)
[2021-07-26 06:50] LABS: Basophils # 0.2 10*3/uL (0.0-0.2); Basophils % 1.8 % (0.0-0.8); Eosinophils # 0.5 10*3/uL (0.0-0.87); Eosinophils % 3.4 % (0.00-10.9); Hematocrit 30.4 VOL% (42.0-52.0); Hemoglobin 10.1 GM/DL (14.0-18.0); Immature Granulocytes % 1.3 %; Immature Granulocytes Absolute 0.18 #; Lymphocytes # 0.9 10*3/uL (1.4-4.0); Lymphocytes % 6.5 % (21.2-54.2); Mean Corpuscular HGB Conc 33.2 GM/DL (32-36); Mean Corpuscular Volume 92.1 FL (87-102); Mean Platelet Volume 8.8 FL (9.6-12.0); Monocytes % 8.3 % (1.7-12.7); Neutrophils % 78.7 % (38.7-73.9); Platelet Count 300 T/CUMM (130-400); Red Cell Distribution Width 13.4 % (9.3-17.3); White Blood Count 13.5 T/CUMM (4-12)
[2021-07-26 07:18] LABS: Albumin 3.2 G/DL (3.4-5.0); Calcium 9.1 MG/DL (8.5-10.1); Osmolality,Calculated 260.4 MOS/KG (273-304); Potassium 3.9 MMOL/L (3.5-5.1); Total Protein 6.7 G/DL (6.4-8.2)
[2021-07-26] MEDS: MAGNESIUM CHLORIDE 64 MG TABLET PO SCH ×2 (08:40→22:18)
[2021-07-26] MEDS: PANTOPRAZOLE 40 MG TABLET PO SCH (08:40)
[2021-07-26] MEDS: SUCRALFATE 1 GM TABLET PO SCH ×2 (08:40→22:00)
[2021-07-26] MEDS: BENZONATATE 100 MG CAPSULE PO SCH ×3 (08:40→22:01)
[2021-07-26] MEDS: TAMSULOSIN 0.4 MG CAPSULE PO SCH ×2 (08:40→22:01)
[2021-07-26] MEDS: LORATADINE 10 MG TABLET PO SCH (08:40)
[2021-07-26] MEDS: FINASTERIDE 5 MG TABLET PO SCH (08:40)
[2021-07-26] MEDS: DOCUSATE SODIUM 100 MG CAPSULE PO SCH ×2 (08:40→22:00)
[2021-07-26] MEDS: ACETAMINOPHEN 325 MG TABLET PO PRN ×3 (08:47→22:01)
[2021-07-26] MEDS: SODIUM CHLORIDE 0.9% 1,000 ML IV SCH (09:30)
[2021-07-26] MEDS: POTASSIUM CHLORIDE 20 MEQ TABLET PO SCH ×2 (10:32→22:00)
[2021-07-26] MEDS: ALBUTEROL 0.63 MG/3 ML NEB RESP TX SCH (15:50)
[2021-07-26] MEDS: AMITRIPTYLINE 50 MG TABLET PO SCH (22:01)
[2021-07-26] MEDS: ENOXAPARIN 40 MG/0.4 ML SYRINGE SUBCUT SCH (22:02)
[2021-07-26] MEDS: cefTRIAXone 1,000 MG in SODIUM CHLORIDE 0.9% 100 ML IV SCH (22:13)
[2021-07-27] MEDS: ALBUTEROL 0.63 MG/3 ML NEB RESP TX SCH ×4 (00:10→23:29)
[2021-07-27 05:20] LABS: Basophils # 0.3 10*3/uL (0.0-0.2); Basophils % 1.8 % (0.0-0.8); Eosinophils # 0.6 10*3/uL (0.0-0.87); Eosinophils % 4.4 % (0.00-10.9); Hematocrit 29.6 VOL% (42.0-52.0); Hemoglobin 9.7 GM/DL (14.0-18.0); Immature Granulocytes % 1.3 %; Immature Granulocytes Absolute 0.18 #; Lymphocytes # 1.1 10*3/uL (1.4-4.0); Lymphocytes % 7.8 % (21.2-54.2); Mean Corpuscular HGB Conc 32.8 GM/DL (32-36); Mean Corpuscular Volume 91.9 FL (87-102); Mean Platelet Volume 8.5 FL (9.6-12.0); Monocytes % 7.8 % (1.7-12.7); Neutrophils % 76.9 % (38.7-73.9); Platelet Count 283 T/CUMM (130-400); Red Blood Count 3.22 MC/CUMM (3.8-5.5); Red Cell Distribution Width 13.6 % (9.3-17.3)
[2021-07-27 05:56] LABS: Albumin 3.1 G/DL (3.4-5.0); Bilirubin,Total 0.4 MG/DL (0.20-1.00); Calcium 8.9 MG/DL (8.5-10.1); Osmolality,Calculated 265.8 MOS/KG (273-304); Potassium 4.1 MMOL/L (3.5-5.1); Total Protein 6.6 G/DL (6.4-8.2)
[2021-07-27] MEDS: POTASSIUM CHLORIDE 20 MEQ TABLET PO SCH ×2 (08:16→20:48)
[2021-07-27] MEDS: BENZONATATE 100 MG CAPSULE PO SCH ×3 (08:17→20:48)
[2021-07-27] MEDS: SUCRALFATE 1 GM TABLET PO SCH ×2 (08:17→20:48)
[2021-07-27] MEDS: TAMSULOSIN 0.4 MG CAPSULE PO SCH ×2 (08:17→20:48)
[2021-07-27] MEDS: FINASTERIDE 5 MG TABLET PO SCH (08:17)
[2021-07-27] MEDS: PANTOPRAZOLE 40 MG TABLET PO SCH (08:18)
[2021-07-27] MEDS: MAGNESIUM CHLORIDE 64 MG TABLET PO SCH ×2 (08:18→21:03)
[2021-07-27] MEDS: DOCUSATE SODIUM 100 MG CAPSULE PO SCH ×2 (08:18→20:48)
[2021-07-27] MEDS: LORATADINE 10 MG TABLET PO SCH (08:18)
[2021-07-27] MEDS ORDERED: ACETAMINOPHEN 500 MG TABLET ONE (20:47)
[2021-07-27] MEDS: AMITRIPTYLINE 50 MG TABLET PO SCH (21:03)
[2021-07-27] MEDS: cefTRIAXone 1,000 MG in SODIUM CHLORIDE 0.9% 100 ML IV SCH (21:03)
[2021-07-27] MEDS: ACETAMINOPHEN 500 MG TABLET PO SCH (21:03)
[2021-07-27] MEDS: ENOXAPARIN 40 MG/0.4 ML SYRINGE SUBCUT SCH (21:03)
[2021-07-28 05:08] LABS: Basophils # 0.2 10*3/uL (0.0-0.2); Basophils % 1.7 % (0.0-0.8); Eosinophils # 0.8 10*3/uL (0.0-0.87); Eosinophils % 5.5 % (0.00-10.9); Hematocrit 29.6 VOL% (42.0-52.0); Hemoglobin 9.7 GM/DL (14.0-18.0); Immature Granulocytes % 1.5 %; Lymphocytes % 7.3 % (21.2-54.2); Mean Corpuscular HGB Conc 32.8 GM/DL (32-36); Mean Corpuscular Volume 92.8 FL (87-102); Mean Platelet Volume 8.7 FL (9.6-12.0); Monocytes % 7.4 % (1.7-12.7); Neutrophils % 76.6 % (38.7-73.9); Platelet Count 284 T/CUMM (130-400); Red Blood Count 3.19 MC/CUMM (3.8-5.5); Red Cell Distribution Width 13.8 % (9.3-17.3); White Blood Count 13.7 T/CUMM (4-12)
[2021-07-28 05:33] LABS: Calcium 8.9 MG/DL (8.5-10.1); Osmolality,Calculated 267.7 MOS/KG (273-304); Potassium 4.5 MMOL/L (3.5-5.1)
[2021-07-28] MEDS: ALBUTEROL 0.63 MG/3 ML NEB RESP TX SCH ×2 (07:22→13:25)
[2021-07-28] MEDS: TAMSULOSIN 0.4 MG CAPSULE PO SCH ×2 (10:07→21:12)
[2021-07-28] MEDS: BENZONATATE 100 MG CAPSULE PO SCH ×3 (10:07→21:13)
[2021-07-28] MEDS: LORATADINE 10 MG TABLET PO SCH (10:07)
[2021-07-28] MEDS: MAGNESIUM CHLORIDE 64 MG TABLET PO SCH ×2 (10:07→21:10)
[2021-07-28] MEDS: ACETAMINOPHEN 500 MG TABLET PO SCH ×3 (10:07→21:10)
[2021-07-28] MEDS: DOCUSATE SODIUM 100 MG CAPSULE PO SCH ×2 (10:08→21:13)
[2021-07-28] MEDS: PANTOPRAZOLE 40 MG TABLET PO SCH (10:08)
[2021-07-28] MEDS: SUCRALFATE 1 GM TABLET PO SCH ×2 (10:08→21:12)
[2021-07-28] MEDS: POTASSIUM CHLORIDE 20 MEQ TABLET PO SCH ×2 (10:08→21:09)
[2021-07-28] MEDS: FINASTERIDE 5 MG TABLET PO SCH (10:08)
[2021-07-28] MEDS: AMITRIPTYLINE 50 MG TABLET PO SCH (21:13)
[2021-07-28] MEDS: ENOXAPARIN 40 MG/0.4 ML SYRINGE SUBCUT SCH (21:14)
[2021-07-28] MEDS: cefTRIAXone 1,000 MG in SODIUM CHLORIDE 0.9% 100 ML IV SCH (21:15)
[2021-07-29] MEDS: ALBUTEROL 0.63 MG/3 ML NEB RESP TX SCH ×3 (00:51→15:10)
[2021-07-29 05:54] LABS: Basophils # 0.2 10*3/uL (0.0-0.2); Basophils % 1.7 % (0.0-0.8); Eosinophils # 0.7 10*3/uL (0.0-0.87); Eosinophils % 5.4 % (0.00-10.9); Hematocrit 29.5 VOL% (42.0-52.0); Hemoglobin 9.4 GM/DL (14.0-18.0); Immature Granulocytes Absolute 0.13 #; Lymphocytes % 7.7 % (21.2-54.2); Mean Corpuscular HGB Conc 31.9 GM/DL (32-36); Mean Corpuscular Volume 93.4 FL (87-102); Mean Platelet Volume 8.4 FL (9.6-12.0); Monocytes % 7.5 % (1.7-12.7); Neutrophils % 76.7 % (38.7-73.9); Platelet Count 272 T/CUMM (130-400); Red Blood Count 3.16 MC/CUMM (3.8-5.5); White Blood Count 12.9 T/CUMM (4-12)
[2021-07-29 06:14] LABS: Osmolality,Calculated 269.5 MOS/KG (273-304); Potassium 4.2 MMOL/L (3.5-5.1)
[2021-07-29] MEDS: cefTRIAXone 1,000 MG in SODIUM CHLORIDE 0.9% 100 ML IV SCH (09:59)
[2021-07-29] MEDS: TAMSULOSIN 0.4 MG CAPSULE PO SCH (10:00)
[2021-07-29] MEDS: FINASTERIDE 5 MG TABLET PO SCH (10:00)
[2021-07-29] MEDS: LORATADINE 10 MG TABLET PO SCH (10:00)
[2021-07-29] MEDS: MAGNESIUM CHLORIDE 64 MG TABLET PO SCH (10:00)
[2021-07-29] MEDS: POTASSIUM CHLORIDE 20 MEQ TABLET PO SCH (10:00)
[2021-07-29] MEDS: DOCUSATE SODIUM 100 MG CAPSULE PO SCH (10:00)
[2021-07-29] MEDS: BENZONATATE 100 MG CAPSULE PO SCH ×2 (10:00→16:30)
[2021-07-29] MEDS: ACETAMINOPHEN 500 MG TABLET PO SCH ×2 (10:00→16:30)
[2021-07-29] MEDS: SUCRALFATE 1 GM TABLET PO SCH (10:00)
[2021-07-29] MEDS: PANTOPRAZOLE 40 MG TABLET PO SCH (10:00)
[2021-07-29 15:48] VITALS: BP 141/63
== END 2021-07-29 17:57 | disposition home health service (06) | DRG 641 ==
LOC: N.ED 10:51 → N.EDINP 10:51 → N.5E 14:32
PROVIDERS: ADMIT Internal Medicine; ATTEND Internal Medicine

== ENCOUNTER 2022-02-06 12:27 | Inpatient (IN) ==
[2022-02-06] MEDS ORDERED: ONDANSETRON 4 MG/2 ML VIAL IV PRN (12:35)
[2022-02-06] MEDS ORDERED: SODIUM CHLORIDE 0.9% 1,000 ML IV SCH (13:00)
[2022-02-06] MEDS: SODIUM BICARB INJ 150 MEQ in DEXTROSE 5% 1,000 ML IV SCH (18:55)
[2022-02-06] MEDS: ALBUTEROL/IPRATROPIUM 3 ML NEB RESP TX SCH (19:40)
[2022-02-06 20:02] LABS: Bilirubin,Urine Negative (Negative); Blood, Urine Moderate mg/dL (Negative); Glucose,Urine (UA) Negative (Negative); Ketones,Urine Negative (Negative); Nitrite,Urine Negative (Negative); Protein,Urine 30 mg/dL (Negative); Urine Appearance Clear (Clear); Urine Color Yellow (Yellow); Urine Specific Gravity 1.015 (1.001-1.035); Urine Urobilinogen 0.2 eU/dL (<2.0)
[2022-02-06 20:09] LABS: Bacteria,Urine Few /HPF (Few); Mucus,Urine Occasional /LPF (Occasional); RBC,Urine 8 /HPF (0-4)
[2022-02-06] MEDS: ENOXAPARIN 30 MG/0.3 ML SYRINGE SUBCUT SCH (20:48)
[2022-02-06] MEDS: DOCUSATE SODIUM 100 MG CAPSULE PO SCH (20:48)
[2022-02-07 04:40] LABS: Basophils # 0.2 10*3/uL (0.0-0.2); Basophils % 1.9 % (0.0-0.8); Eosinophils # 0.8 10*3/uL (0.0-0.87); Eosinophils % 6.6 % (0.00-10.9); Hematocrit 26.7 VOL% (42.0-52.0); Hemoglobin 8.3 GM/DL (14.0-18.0); Immature Granulocytes % 1.3 %; Immature Granulocytes Absolute 0.15 #; Lymphocytes # 0.7 10*3/uL (1.4-4.0); Lymphocytes % 6.3 % (21.2-54.2); Mean Corpuscular HGB Conc 31.1 GM/DL (32-36); Mean Platelet Volume 8.9 FL (9.6-12.0); Monocytes % 8.4 % (1.7-12.7); NRBC # 0.02 10*3/uL; Neutrophils % 75.5 % (38.7-73.9); Platelet Count 227 T/CUMM (130-400); Red Blood Count 2.81 MC/CUMM (3.8-5.5); White Blood Count 11.6 T/CUMM (4-12)
[2022-02-07 05:02] LABS: Bilirubin,Total 0.9 MG/DL (0.20-1.00); Calcium 9.3 MG/DL (8.5-10.1); Osmolality,Calculated 302.7 MOS/KG (273-304); Potassium 3.5 MMOL/L (3.5-5.1); Total Protein 6.7 G/DL (6.4-8.2)
[2022-02-07] MEDS: ALBUTEROL/IPRATROPIUM 3 ML NEB RESP TX SCH ×4 (07:20→19:46)
[2022-02-07] MEDS: PANTOPRAZOLE 40 MG TABLET PO SCH (08:46)
[2022-02-07] MEDS: DOCUSATE SODIUM 100 MG CAPSULE PO SCH ×2 (08:46→20:49)
[2022-02-07] MEDS: SODIUM BICARB INJ 150 MEQ in DEXTROSE 5% 1,000 ML IV SCH (08:51)
[2022-02-07] MEDS: ENOXAPARIN 30 MG/0.3 ML SYRINGE SUBCUT SCH (20:49)
[2022-02-07] MEDS: TAMSULOSIN 0.4 MG CAPSULE PO SCH (20:49)
[2022-02-07] MEDS: ACETAMINOPHEN 325 MG TABLET PO PRN (20:58)
[2022-02-08] MEDS: ALBUTEROL/IPRATROPIUM 3 ML NEB RESP TX SCH ×5 (00:26→19:45)
[2022-02-08] MEDS: ACETAMINOPHEN 325 MG TABLET PO PRN ×3 (02:44→16:57)
[2022-02-08] MEDS: SODIUM BICARB INJ 150 MEQ in DEXTROSE 5% 1,000 ML IV SCH (02:47)
[2022-02-08 05:51] LABS: Basophils # 0.2 10*3/uL (0.0-0.2); Basophils % 1.5 % (0.0-0.8); Eosinophils # 0.7 10*3/uL (0.0-0.87); Eosinophils % 4.8 % (0.00-10.9); Hematocrit 26.4 VOL% (42.0-52.0); Hemoglobin 8.6 GM/DL (14.0-18.0); Immature Granulocytes % 1.2 %; Immature Granulocytes Absolute 0.16 #; Lymphocytes # 0.7 10*3/uL (1.4-4.0); Lymphocytes % 5.2 % (21.2-54.2); Mean Corpuscular HGB Conc 32.6 GM/DL (32-36); Mean Corpuscular Volume 92.3 FL (87-102); Mean Platelet Volume 8.9 FL (9.6-12.0); Monocytes # 1.2 10*3/uL (0.11-0.8); Neutrophils % 78.3 % (38.7-73.9); Platelet Count 224 T/CUMM (130-400); Red Blood Count 2.86 MC/CUMM (3.8-5.5); Red Cell Distribution Width 17.2 % (9.3-17.3); White Blood Count 13.7 T/CUMM (4-12)
[2022-02-08] MEDS: TAMSULOSIN 0.4 MG CAPSULE PO SCH ×2 (08:34→21:12)
[2022-02-08] MEDS: DOCUSATE SODIUM 100 MG CAPSULE PO SCH (08:34)
[2022-02-08] MEDS: PANTOPRAZOLE 40 MG TABLET PO SCH (08:34)
[2022-02-08] MEDS: MAGNESIUM CHLORIDE 64 MG TABLET PO SCH (21:12)
[2022-02-08] MEDS: FERROUS SULFATE 325 MG TABLET PO SCH (21:12)
[2022-02-08] MEDS: METHOCARBAMOL 750 MG TABLET PO SCH (21:13)
[2022-02-08] MEDS: ENOXAPARIN 30 MG/0.3 ML SYRINGE SUBCUT SCH (21:14)
[2022-02-09] MEDS: ALBUTEROL/IPRATROPIUM 3 ML NEB RESP TX SCH ×4 (00:35→18:55)
[2022-02-09 04:50] LABS: Basophils # 0.2 10*3/uL (0.0-0.2); Basophils % 1.1 % (0.0-0.8); Eosinophils # 0.3 10*3/uL (0.0-0.87); Eosinophils % 2.1 % (0.00-10.9); Hematocrit 28.5 VOL% (42.0-52.0); Hemoglobin 9.4 GM/DL (14.0-18.0); Immature Granulocytes % 1.2 %; Immature Granulocytes Absolute 0.18 #; Lymphocytes # 0.8 10*3/uL (1.4-4.0); Lymphocytes % 5.3 % (21.2-54.2); Mean Corpuscular Volume 91.6 FL (87-102); Monocytes # 1.1 10*3/uL (0.11-0.8); NRBC # 0.05 10*3/uL; Neutrophils % 83.3 % (38.7-73.9); Platelet Count 271 T/CUMM (130-400); Red Blood Count 3.11 MC/CUMM (3.8-5.5); White Blood Count 15.4 T/CUMM (4-12)
[2022-02-09 05:10] LABS: Calcium 8.7 MG/DL (8.5-10.1); Osmolality,Calculated 284.8 MOS/KG (273-304); Potassium 3.3 MMOL/L (3.5-5.1)
[2022-02-09] MEDS ORDERED: amLODIPine 5 MG TABLET PO SCH ×2 (09:00→09:30)
[2022-02-09] MEDS ORDERED: hydrALAZINE 25 MG TABLET PO SCH (09:30)
[2022-02-09] MEDS: MAGNESIUM CHLORIDE 64 MG TABLET PO SCH ×2 (10:04→21:38)
[2022-02-09] MEDS: FERROUS SULFATE 325 MG TABLET PO SCH ×2 (10:04→21:38)
[2022-02-09] MEDS: FINASTERIDE 5 MG TABLET PO SCH (10:04)
[2022-02-09] MEDS: TAMSULOSIN 0.4 MG CAPSULE PO SCH ×2 (10:04→21:38)
[2022-02-09] MEDS: METHOCARBAMOL 750 MG TABLET PO SCH ×3 (10:04→21:38)
[2022-02-09] MEDS: PANTOPRAZOLE 40 MG TABLET PO SCH (10:05)
[2022-02-09] MEDS: FLUTICASONE 50 MCG NASAL SPRAY 16 GM BOTTLE BOTH NARES SCH (10:05)
[2022-02-09] MEDS: cefTRIAXone 1,000 MG in SODIUM CHLORIDE 0.9% 100 ML IV SCH (10:14)
[2022-02-09] MEDS ORDERED: FUROSEMIDE 40 MG/4 ML VIAL IV ONE (11:30)
[2022-02-09] MEDS: POTASSIUM CHLORIDE 20 MEQ TABLET PO PRN ×3 (12:26→17:44)
[2022-02-09] MEDS: SODIUM BICARBONATE 650 MG TABLET PO SCH ×2 (15:39→21:38)
[2022-02-09] MEDS ORDERED: cloNIDine 0.1 MG TABLET PO SCH (21:00)
[2022-02-09] MEDS: ENOXAPARIN 30 MG/0.3 ML SYRINGE SUBCUT SCH (21:38)
[2022-02-10] MEDS ORDERED: cloNIDine 0.1 MG TABLET PO ONE (00:08)
[2022-02-10] MEDS: ALBUTEROL/IPRATROPIUM 3 ML NEB RESP TX SCH ×4 (00:40→18:59)
[2022-02-10 00:59] LABS: Basophils # 0.1 10*3/uL (0.0-0.2); Basophils % 0.6 % (0.0-0.8); Eosinophils # 0.2 10*3/uL (0.0-0.87); Eosinophils % 1.1 % (0.00-10.9); Hematocrit 27.4 VOL% (42.0-52.0); Immature Granulocytes % 1.3 %; Lymphocytes # 0.5 10*3/uL (1.4-4.0); Mean Corpuscular HGB Conc 32.8 GM/DL (32-36); Mean Corpuscular Volume 90.4 FL (87-102); Mean Platelet Volume 8.8 FL (9.6-12.0); Monocytes # 1.1 10*3/uL (0.11-0.8); Monocytes % 6.6 % (1.7-12.7); NRBC # 0.04 10*3/uL; Neutrophils % 87.4 % (38.7-73.9); Platelet Count 250 T/CUMM (130-400); Red Blood Count 3.03 MC/CUMM (3.8-5.5); Red Cell Distribution Width 17.2 % (9.3-17.3); White Blood Count 15.9 T/CUMM (4-12)
[2022-02-10] MEDS ORDERED: FUROSEMIDE 40 MG/4 ML VIAL IV ONE (08:06)
[2022-02-10 08:56] LABS: Calcium 8.9 MG/DL (8.5-10.1); Osmolality,Calculated 275.5 MOS/KG (273-304); Potassium 3.4 MMOL/L (3.5-5.1)
[2022-02-10] MEDS ORDERED: cloNIDine 0.1 MG TABLET PO SCH (09:00)
[2022-02-10] MEDS: ALBUTEROL/IPRATROPIUM 3 ML NEB RESP TX PRN (09:50)
[2022-02-10] MEDS: FINASTERIDE 5 MG TABLET PO SCH (11:21)
[2022-02-10] MEDS: FERROUS SULFATE 325 MG TABLET PO SCH ×2 (11:21→22:16)
[2022-02-10] MEDS: TAMSULOSIN 0.4 MG CAPSULE PO SCH ×2 (11:21→22:19)
[2022-02-10] MEDS: METHOCARBAMOL 750 MG TABLET PO SCH ×3 (11:21→22:16)
[2022-02-10] MEDS: PANTOPRAZOLE 40 MG TABLET PO SCH (11:22)
[2022-02-10] MEDS: SODIUM BICARBONATE 650 MG TABLET PO SCH ×3 (11:22→22:16)
[2022-02-10] MEDS: FLUTICASONE 50 MCG NASAL SPRAY 16 GM BOTTLE BOTH NARES SCH (11:22)
[2022-02-10] MEDS: MAGNESIUM CHLORIDE 64 MG TABLET PO SCH ×2 (11:22→22:16)
[2022-02-10] MEDS: POTASSIUM CHLORIDE 20 MEQ TABLET PO PRN ×3 (11:22→18:31)
[2022-02-10] MEDS: cefTRIAXone 1,000 MG in SODIUM CHLORIDE 0.9% 100 ML IV SCH (11:23)
[2022-02-10] MEDS: amLODIPine 2.5 MG TABLET PO SCH (15:52)
[2022-02-10] MEDS: SILDENAFIL 20 MG TABLET PO SCH ×2 (15:52→22:17)
[2022-02-10] MEDS: cloNIDine 0.1 MG TABLET PO SCH ×2 (15:53→22:16)
[2022-02-10] MEDS ORDERED: TERAZOSIN 1 MG CAPSULE PO SCH (21:00)
[2022-02-10] MEDS: ENOXAPARIN 30 MG/0.3 ML SYRINGE SUBCUT SCH (22:16)
[2022-02-11] MEDS: ALBUTEROL/IPRATROPIUM 3 ML NEB RESP TX SCH ×4 (00:20→19:20)
[2022-02-11] MEDS: ALBUTEROL/IPRATROPIUM 3 ML NEB RESP TX PRN (03:56)
[2022-02-11] MEDS ORDERED: FUROSEMIDE 40 MG/4 ML VIAL IV ONE (05:01)
[2022-02-11 05:56] LABS: Basophils # 0.1 10*3/uL (0.0-0.2); Basophils % 0.5 % (0.0-0.8); Eosinophils # 0.5 10*3/uL (0.0-0.87); Eosinophils % 2.6 % (0.00-10.9); Hematocrit 25.7 VOL% (42.0-52.0); Hemoglobin 8.3 GM/DL (14.0-18.0); Immature Granulocytes % 1.6 %; Immature Granulocytes Absolute 0.27 #; Lymphocytes # 0.5 10*3/uL (1.4-4.0); Lymphocytes % 2.6 % (21.2-54.2); Mean Corpuscular HGB Conc 32.3 GM/DL (32-36); Mean Corpuscular Volume 91.8 FL (87-102); Mean Platelet Volume 9.4 FL (9.6-12.0); Monocytes # 1.1 10*3/uL (0.11-0.8); Monocytes % 6.3 % (1.7-12.7); NRBC # 0.02 10*3/uL; Neutrophils % 86.4 % (38.7-73.9); Platelet Count 241 T/CUMM (130-400); Red Cell Distribution Width 16.8 % (9.3-17.3)
[2022-02-11 06:08] LABS: Calcium 8.6 MG/DL (8.5-10.1); Osmolality,Calculated 266.9 MOS/KG (273-304); Potassium 3.2 MMOL/L (3.5-5.1)
[2022-02-11 06:23] LABS: Lymphocytes 4 % (20-55); Polychromasia Slight; Total Cells Counted 100
[2022-02-11 06:24] LABS: Anisocytosis 1+; Microcytosis 1+; Ovalocytes Slight; Platelet Estimate Normal
[2022-02-11] MEDS: POTASSIUM CHLORIDE 20 MEQ TABLET PO PRN ×4 (06:34→22:20)
[2022-02-11] MEDS ORDERED: POTASSIUM CHLORIDE RIDER 10 MEQ/100 ML PREMIX IV PRN (08:55)
[2022-02-11] MEDS: SILDENAFIL 20 MG TABLET PO SCH ×3 (10:26→22:20)
[2022-02-11] MEDS: FLUTICASONE 50 MCG NASAL SPRAY 16 GM BOTTLE BOTH NARES SCH (10:26)
[2022-02-11] MEDS: FERROUS SULFATE 325 MG TABLET PO SCH ×2 (10:27→22:20)
[2022-02-11] MEDS: FINASTERIDE 5 MG TABLET PO SCH (10:27)
[2022-02-11] MEDS: SODIUM BICARBONATE 650 MG TABLET PO SCH ×3 (10:27→22:19)
[2022-02-11] MEDS: METHOCARBAMOL 750 MG TABLET PO SCH (10:27)
[2022-02-11] MEDS: TAMSULOSIN 0.4 MG CAPSULE PO SCH ×2 (10:27→22:20)
[2022-02-11] MEDS: PANTOPRAZOLE 40 MG TABLET PO SCH (10:27)
[2022-02-11] MEDS: cloNIDine 0.1 MG TABLET PO SCH ×3 (10:27→22:19)
[2022-02-11] MEDS: amLODIPine 2.5 MG TABLET PO SCH (10:27)
[2022-02-11] MEDS: MAGNESIUM CHLORIDE 64 MG TABLET PO SCH ×2 (10:27→22:19)
[2022-02-11] MEDS: cefTRIAXone 1,000 MG in SODIUM CHLORIDE 0.9% 100 ML IV SCH (10:28)
[2022-02-11] MEDS: PIPERACILLIN/TAZOBACTAM 3,375 MG in SODIUM CHLORIDE 0.9% 100 ML IV SCH (13:25)
[2022-02-11] MEDS: ENOXAPARIN 30 MG/0.3 ML SYRINGE SUBCUT SCH (22:20)
[2022-02-12] MEDS: ALBUTEROL/IPRATROPIUM 3 ML NEB RESP TX SCH ×4 (00:55→20:00)
[2022-02-12] MEDS: PIPERACILLIN/TAZOBACTAM 3,375 MG in SODIUM CHLORIDE 0.9% 100 ML IV SCH ×2 (00:59→14:20)
[2022-02-12 04:45] LABS: Basophils # 0.1 10*3/uL (0.0-0.2); Basophils % 0.3 % (0.0-0.8); Eosinophils # 0.1 10*3/uL (0.0-0.87); Eosinophils % 0.7 % (0.00-10.9); Hematocrit 23.4 VOL% (42.0-52.0); Hemoglobin 7.9 GM/DL (14.0-18.0); Immature Granulocytes % 1.2 %; Immature Granulocytes Absolute 0.23 #; Lymphocytes # 0.5 10*3/uL (1.4-4.0); Lymphocytes % 2.4 % (21.2-54.2); Mean Corpuscular HGB Conc 33.8 GM/DL (32-36); Monocytes # 1.1 10*3/uL (0.11-0.8); Monocytes % 5.8 % (1.7-12.7); NRBC # 0.02 10*3/uL; Neutrophils % 89.6 % (38.7-73.9); Platelet Count 226 T/CUMM (130-400); Red Cell Distribution Width 16.3 % (9.3-17.3); White Blood Count 19.7 T/CUMM (4-12)
[2022-02-12 05:07] LABS: Eosinophils 3 % (0-10); Lymphocytes 1 % (20-55); Platelet Estimate Adequate; Total Cells Counted 100
[2022-02-12] MEDS: SODIUM BICARBONATE 650 MG TABLET PO SCH ×3 (09:06→21:43)
[2022-02-12] MEDS: cloNIDine 0.1 MG TABLET PO SCH ×3 (09:06→21:43)
[2022-02-12] MEDS: amLODIPine 2.5 MG TABLET PO SCH (09:06)
[2022-02-12] MEDS: FINASTERIDE 5 MG TABLET PO SCH (09:06)
[2022-02-12] MEDS: TAMSULOSIN 0.4 MG CAPSULE PO SCH ×2 (09:06→21:42)
[2022-02-12] MEDS: FERROUS SULFATE 325 MG TABLET PO SCH ×2 (09:06→21:43)
[2022-02-12] MEDS: MAGNESIUM CHLORIDE 64 MG TABLET PO SCH ×2 (09:06→21:42)
[2022-02-12] MEDS: FLUTICASONE 50 MCG NASAL SPRAY 16 GM BOTTLE BOTH NARES SCH (09:07)
[2022-02-12] MEDS: PANTOPRAZOLE 40 MG TABLET PO SCH (09:07)
[2022-02-12] MEDS: SILDENAFIL 20 MG TABLET PO SCH ×3 (09:07→21:43)
[2022-02-12 09:11] LABS: Calcium 8.4 MG/DL (8.5-10.1); Osmolality,Calculated 262.2 MOS/KG (273-304); Potassium 4.1 MMOL/L (3.5-5.1)
[2022-02-12] MEDS ORDERED: FUROSEMIDE 40 MG/4 ML VIAL IV ONE (11:14)
[2022-02-12] MEDS ORDERED: ceFAZolin 2,000 MG/50 ML DUPLEX IV ONE (15:00)
[2022-02-12] MEDS: methylPREDNISolone SOD SUC 40 MG/1 ML VIAL IV SCH ×2 (15:59→23:39)
[2022-02-12] MEDS: ENOXAPARIN 30 MG/0.3 ML SYRINGE SUBCUT SCH (21:43)
[2022-02-13] MEDS: ALBUTEROL/IPRATROPIUM 3 ML NEB RESP TX SCH ×4 (00:35→18:50)
[2022-02-13 05:01] LABS: Calcium 8.5 MG/DL (8.5-10.1); Osmolality,Calculated 268.9 MOS/KG (273-304); Potassium 3.4 MMOL/L (3.5-5.1)
[2022-02-13] MEDS: methylPREDNISolone SOD SUC 40 MG/1 ML VIAL IV SCH ×2 (09:30→16:40)
[2022-02-13] MEDS: cloNIDine 0.1 MG TABLET PO SCH ×3 (09:30→23:38)
[2022-02-13] MEDS: TAMSULOSIN 0.4 MG CAPSULE PO SCH ×2 (09:31→21:52)
[2022-02-13] MEDS: FERROUS SULFATE 325 MG TABLET PO SCH ×2 (09:31→21:51)
[2022-02-13] MEDS: FLUTICASONE 50 MCG NASAL SPRAY 16 GM BOTTLE BOTH NARES SCH (09:31)
[2022-02-13] MEDS: FINASTERIDE 5 MG TABLET PO SCH (09:32)
[2022-02-13] MEDS: amLODIPine 2.5 MG TABLET PO SCH (09:32)
[2022-02-13] MEDS: SILDENAFIL 20 MG TABLET PO SCH ×3 (09:33→21:51)
[2022-02-13] MEDS: PANTOPRAZOLE 40 MG TABLET PO SCH (09:33)
[2022-02-13] MEDS: MAGNESIUM CHLORIDE 64 MG TABLET PO SCH ×2 (09:33→21:51)
[2022-02-13] MEDS: SODIUM BICARBONATE 650 MG TABLET PO SCH ×3 (09:34→21:51)
[2022-02-13] MEDS ORDERED: FUROSEMIDE 40 MG/4 ML VIAL IV ONE (11:20)
[2022-02-13] MEDS: ROSUVASTATIN 20 MG TABLET PO SCH (21:52)
[2022-02-13] MEDS: ENOXAPARIN 30 MG/0.3 ML SYRINGE SUBCUT SCH (21:52)
[2022-02-14] MEDS: methylPREDNISolone SOD SUC 40 MG/1 ML VIAL IV SCH (00:31)
[2022-02-14] MEDS: ACETAMINOPHEN 325 MG TABLET PO PRN (00:37)
[2022-02-14 05:18] LABS: Calcium 8.6 MG/DL (8.5-10.1); Osmolality,Calculated 270.9 MOS/KG (273-304); Potassium 2.9 MMOL/L (3.5-5.1)
[2022-02-14 05:21] LABS: Albumin 2.7 G/DL (3.4-5.0); Bilirubin,Direct 0.17 MG/DL (0.0-0.20); Bilirubin,Indirect 0.3 MG/DL (0.0-1.0); Bilirubin,Total 0.5 MG/DL (0.20-1.00); Total Protein 5.9 G/DL (6.4-8.2)
[2022-02-14 06:21] LABS: Basophils % 0.1 % (0.0-0.8); Hematocrit 18.1 VOL% (42.0-52.0); Immature Granulocytes % 1.3 %; Immature Granulocytes Absolute 0.26 #; Lymphocytes # 0.2 10*3/uL (1.4-4.0); Lymphocytes % 1.2 % (21.2-54.2); Mean Corpuscular Volume 93.3 FL (87-102); Mean Platelet Volume 9.1 FL (9.6-12.0); Monocytes # 0.3 10*3/uL (0.11-0.8); Monocytes % 1.2 % (1.7-12.7); NRBC # 0.05 10*3/uL; Neutrophils % 96.2 % (38.7-73.9); Platelet Count 232 T/CUMM (130-400); Red Blood Count 1.94 MC/CUMM (3.8-5.5); Red Cell Distribution Width 16.9 % (9.3-17.3); White Blood Count 20.1 T/CUMM (4-12)
[2022-02-14 06:24] LABS: Hemoglobin 5.8 GM/DL (14.0-18.0)
[2022-02-14] MEDS ORDERED: SODIUM CHLORIDE 0.9% 1,000 ML IV PRN (06:30)
[2022-02-14 06:32] LABS: Calcium 8.5 MG/DL (8.5-10.1); Osmolality,Calculated 272.8 MOS/KG (273-304)
[2022-02-14 06:49] LABS: Hypochromia 1+; Lymphocytes 1 % (20-55); Platelet Estimate Adequate; Total Cells Counted 100
[2022-02-14] MEDS: ALBUTEROL/IPRATROPIUM 3 ML NEB RESP TX SCH ×4 (07:19→19:18)
[2022-02-14] MEDS: SODIUM BICARBONATE 650 MG TABLET PO SCH ×3 (10:04→20:25)
[2022-02-14] MEDS: FERROUS SULFATE 325 MG TABLET PO SCH ×2 (10:04→20:25)
[2022-02-14] MEDS: cloNIDine 0.1 MG TABLET PO SCH ×3 (10:04→20:24)
[2022-02-14] MEDS: FINASTERIDE 5 MG TABLET PO SCH (10:04)
[2022-02-14] MEDS: MAGNESIUM CHLORIDE 64 MG TABLET PO SCH ×2 (10:04→20:24)
[2022-02-14] MEDS: PANTOPRAZOLE 40 MG TABLET PO SCH (10:05)
[2022-02-14] MEDS: amLODIPine 2.5 MG TABLET PO SCH (10:05)
[2022-02-14] MEDS: TAMSULOSIN 0.4 MG CAPSULE PO SCH ×2 (10:05→20:25)
[2022-02-14] MEDS: SILDENAFIL 20 MG TABLET PO SCH ×3 (10:05→20:25)
[2022-02-14] MEDS: FLUTICASONE 50 MCG NASAL SPRAY 16 GM BOTTLE BOTH NARES SCH (10:07)
[2022-02-14] MEDS: ASPIRIN EC 81 MG TABLET PO SCH (10:07)
[2022-02-14] MEDS ORDERED: FUROSEMIDE 20 MG/2 ML VIAL IV ONE (19:30)
[2022-02-14] MEDS: ENOXAPARIN 30 MG/0.3 ML SYRINGE SUBCUT SCH (20:24)
[2022-02-14] MEDS: ROSUVASTATIN 20 MG TABLET PO SCH (20:25)
[2022-02-15] MEDS: ALBUTEROL/IPRATROPIUM 3 ML NEB RESP TX SCH ×4 (00:35→20:41)
[2022-02-15] MEDS: ACETAMINOPHEN 325 MG TABLET PO PRN ×2 (04:59→20:55)
[2022-02-15 05:45] LABS: Calcium 8.7 MG/DL (8.5-10.1); Osmolality,Calculated 281.4 MOS/KG (273-304); Potassium 2.8 MMOL/L (3.5-5.1)
[2022-02-15] MEDS: POTASSIUM CHLORIDE 20 MEQ TABLET PO PRN ×5 (06:18→20:56)
[2022-02-15 08:36] LABS: Basophils % 0.1 % (0.0-0.8); Hematocrit 21.9 VOL% (42.0-52.0); Immature Granulocytes % 1.5 %; Immature Granulocytes Absolute 0.39 #; Lymphocytes # 0.3 10*3/uL (1.4-4.0); Mean Corpuscular HGB Conc 33.3 GM/DL (32-36); Mean Platelet Volume 9.4 FL (9.6-12.0); Monocytes # 1.2 10*3/uL (0.11-0.8); Monocytes % 4.6 % (1.7-12.7); NRBC # 0.03 10*3/uL; Neutrophils % 92.8 % (38.7-73.9); Platelet Count 237 T/CUMM (130-400); Red Cell Distribution Width 18.6 % (9.3-17.3); White Blood Count 26.1 T/CUMM (4-12)
[2022-02-15 08:38] LABS: Red Blood Count 2.49 MC/CUMM (3.8-5.5)
[2022-02-15 08:39] LABS: Hemoglobin 7.3 GM/DL (14.0-18.0)
[2022-02-15 09:08] LABS: Anisocytosis 1+; Hypochromia Slight; Lymphocytes 2 % (20-55); Microcytosis 1+; Polychromasia Slight; Total Cells Counted 100
[2022-02-15] MEDS: ASPIRIN EC 81 MG TABLET PO SCH (09:16)
[2022-02-15] MEDS: cloNIDine 0.1 MG TABLET PO SCH ×3 (09:16→20:54)
[2022-02-15] MEDS: TAMSULOSIN 0.4 MG CAPSULE PO SCH ×2 (09:17→20:55)
[2022-02-15] MEDS: SODIUM BICARBONATE 650 MG TABLET PO SCH ×3 (09:17→20:54)
[2022-02-15] MEDS: FLUTICASONE 50 MCG NASAL SPRAY 16 GM BOTTLE BOTH NARES SCH (09:17)
[2022-02-15] MEDS: FERROUS SULFATE 325 MG TABLET PO SCH ×2 (09:17→20:55)
[2022-02-15] MEDS: amLODIPine 2.5 MG TABLET PO SCH (09:17)
[2022-02-15] MEDS: FINASTERIDE 5 MG TABLET PO SCH (09:18)
[2022-02-15] MEDS: MAGNESIUM CHLORIDE 64 MG TABLET PO SCH ×2 (09:18→20:54)
[2022-02-15] MEDS: PANTOPRAZOLE 40 MG TABLET PO SCH (09:18)
[2022-02-15] MEDS: SILDENAFIL 20 MG TABLET PO SCH ×3 (09:18→20:55)
[2022-02-15] MEDS: methylPREDNISolone SOD SUC 40 MG/1 ML VIAL IV SCH ×2 (09:33→10:57)
[2022-02-15] MEDS ORDERED: LACTULOSE 20 GM/30 ML UDCUP PO ONE (18:30)
[2022-02-15] MEDS ORDERED: MAGNESIUM HYDROXIDE SUSP 30 ML UDCUP PO ONE (19:30)
[2022-02-15] MEDS: ROSUVASTATIN 20 MG TABLET PO SCH (20:55)
[2022-02-16] MEDS: ALBUTEROL/IPRATROPIUM 3 ML NEB RESP TX SCH ×4 (01:02→20:20)
[2022-02-16] MEDS: POTASSIUM CHLORIDE 20 MEQ TABLET PO PRN ×3 (01:26→09:12)
[2022-02-16 06:03] LABS: Calcium 8.4 MG/DL (8.5-10.1); Osmolality,Calculated 288.8 MOS/KG (273-304); Potassium 3.8 MMOL/L (3.5-5.1)
[2022-02-16] MEDS: ACETAMINOPHEN 325 MG TABLET PO PRN ×2 (09:10→21:45)
[2022-02-16] MEDS: MAGNESIUM CHLORIDE 64 MG TABLET PO SCH ×2 (09:10→21:45)
[2022-02-16] MEDS: amLODIPine 2.5 MG TABLET PO SCH (09:10)
[2022-02-16] MEDS: FERROUS SULFATE 325 MG TABLET PO SCH ×2 (09:10→21:45)
[2022-02-16] MEDS: methylPREDNISolone SOD SUC 40 MG/1 ML VIAL IV SCH (09:10)
[2022-02-16] MEDS: FINASTERIDE 5 MG TABLET PO SCH (09:11)
[2022-02-16] MEDS: PANTOPRAZOLE 40 MG TABLET PO SCH (09:11)
[2022-02-16] MEDS: cloNIDine 0.1 MG TABLET PO SCH ×3 (09:11→21:45)
[2022-02-16] MEDS: TAMSULOSIN 0.4 MG CAPSULE PO SCH ×2 (09:11→21:46)
[2022-02-16] MEDS: SILDENAFIL 20 MG TABLET PO SCH ×3 (09:11→21:45)
[2022-02-16] MEDS: SODIUM BICARBONATE 650 MG TABLET PO SCH ×3 (09:11→21:45)
[2022-02-16] MEDS: ASPIRIN EC 81 MG TABLET PO SCH (09:12)
[2022-02-16] MEDS: FLUTICASONE 50 MCG NASAL SPRAY 16 GM BOTTLE BOTH NARES SCH (09:12)
[2022-02-16 12:18] LABS: Basophils % 0.1 % (0.0-0.8); Hematocrit 22.5 VOL% (42.0-52.0); Hemoglobin 7.1 GM/DL (14.0-18.0); Immature Granulocytes % 1.7 %; Immature Granulocytes Absolute 0.51 #; Lymphocytes # 0.3 10*3/uL (1.4-4.0); Lymphocytes % 1.2 % (21.2-54.2); Mean Corpuscular HGB Conc 31.6 GM/DL (32-36); Mean Corpuscular Volume 92.2 FL (87-102); Mean Platelet Volume 9.2 FL (9.6-12.0); Monocytes # 1.5 10*3/uL (0.11-0.8); Platelet Count 233 T/CUMM (130-400); Red Blood Count 2.44 MC/CUMM (3.8-5.5); Red Cell Distribution Width 18.6 % (9.3-17.3); White Blood Count 29.5 T/CUMM (4-12)
[2022-02-16 12:38] LABS: Band Neutrophils 1 % (0-10); Lymphocytes 2 % (20-55); Microcytosis 1+; Polychromasia Slight; Total Cells Counted 100
[2022-02-16 12:39] LABS: Anisocytosis 1+; Hypochromia Slight
[2022-02-16 12:40] LABS: Platelet Estimate Normal
[2022-02-16] MEDS: ENOXAPARIN 30 MG/0.3 ML SYRINGE SUBCUT SCH (21:45)
[2022-02-16] MEDS: ROSUVASTATIN 20 MG TABLET PO SCH (21:45)
[2022-02-17] MEDS: ALBUTEROL/IPRATROPIUM 3 ML NEB RESP TX SCH ×4 (00:47→19:10)
[2022-02-17 05:18] LABS: Calcium 8.6 MG/DL (8.5-10.1); Osmolality,Calculated 283.9 MOS/KG (273-304); Potassium 4.7 MMOL/L (3.5-5.1)
[2022-02-17] MEDS: TAMSULOSIN 0.4 MG CAPSULE PO SCH ×2 (09:01→21:48)
[2022-02-17] MEDS: amLODIPine 2.5 MG TABLET PO SCH (09:01)
[2022-02-17] MEDS: SODIUM BICARBONATE 650 MG TABLET PO SCH ×3 (09:01→21:48)
[2022-02-17] MEDS: FERROUS SULFATE 325 MG TABLET PO SCH ×2 (09:01→21:48)
[2022-02-17] MEDS: cloNIDine 0.1 MG TABLET PO SCH ×3 (09:02→21:48)
[2022-02-17] MEDS: MAGNESIUM CHLORIDE 64 MG TABLET PO SCH ×2 (09:02→21:48)
[2022-02-17] MEDS: FINASTERIDE 5 MG TABLET PO SCH (09:02)
[2022-02-17] MEDS: ACETAMINOPHEN 325 MG TABLET PO PRN (09:03)
[2022-02-17] MEDS: PANTOPRAZOLE 40 MG TABLET PO SCH (09:03)
[2022-02-17] MEDS: SILDENAFIL 20 MG TABLET PO SCH ×3 (09:03→21:48)
[2022-02-17] MEDS: ASPIRIN EC 81 MG TABLET PO SCH (09:03)
[2022-02-17] MEDS: FLUTICASONE 50 MCG NASAL SPRAY 16 GM BOTTLE BOTH NARES SCH (09:04)
[2022-02-17] MEDS: methylPREDNISolone SOD SUC 40 MG/1 ML VIAL IV SCH (09:04)
[2022-02-17 09:12] LABS: Basophils % 0.1 % (0.0-0.8); Hematocrit 21.3 VOL% (42.0-52.0); Hemoglobin 6.8 GM/DL (14.0-18.0); Immature Granulocytes % 1.9 %; Immature Granulocytes Absolute 0.53 #; Lymphocytes # 0.5 10*3/uL (1.4-4.0); Lymphocytes % 1.6 % (21.2-54.2); Mean Corpuscular HGB Conc 31.9 GM/DL (32-36); Mean Corpuscular Volume 91.8 FL (87-102); Mean Platelet Volume 9.5 FL (9.6-12.0); Monocytes # 1.7 10*3/uL (0.11-0.8); Monocytes % 5.8 % (1.7-12.7); NRBC # 0.02 10*3/uL; Neutrophils % 90.6 % (38.7-73.9); Platelet Count 235 T/CUMM (130-400); Red Blood Count 2.32 MC/CUMM (3.8-5.5); White Blood Count 28.3 T/CUMM (4-12)
[2022-02-17 09:34] LABS: Lymphocytes 5 % (20-55); Platelet Estimate Adequate; Total Cells Counted 100
[2022-02-17] MEDS ORDERED: FUROSEMIDE 40 MG/4 ML VIAL IV PRN (12:44)
[2022-02-17] MEDS ORDERED: SODIUM CHLORIDE 0.9% 1,000 ML IV PRN (12:44)
[2022-02-17] MEDS: ROSUVASTATIN 20 MG TABLET PO SCH (21:48)
[2022-02-18] MEDS: ALBUTEROL/IPRATROPIUM 3 ML NEB RESP TX SCH ×2 (00:20→06:59)
[2022-02-18 05:20] LABS: Calcium 8.9 MG/DL (8.5-10.1); Osmolality,Calculated 287.1 MOS/KG (273-304); Potassium 4.6 MMOL/L (3.5-5.1)
[2022-02-18 05:30] LABS: Basophils % 0.1 % (0.0-0.8); Hematocrit 27.2 VOL% (42.0-52.0); Hemoglobin 8.8 GM/DL (14.0-18.0); Immature Granulocytes % 2.4 %; Immature Granulocytes Absolute 0.66 #; Lymphocytes # 0.5 10*3/uL (1.4-4.0); Lymphocytes % 1.9 % (21.2-54.2); Mean Corpuscular HGB Conc 32.4 GM/DL (32-36); Mean Corpuscular Volume 90.7 FL (87-102); Mean Platelet Volume 10.6 FL (9.6-12.0); Monocytes # 1.6 10*3/uL (0.11-0.8); Monocytes % 5.9 % (1.7-12.7); NRBC # 0.02 10*3/uL; Neutrophils % 89.7 % (38.7-73.9); Platelet Count 183 T/CUMM (130-400); Red Cell Distribution Width 17.5 % (9.3-17.3); White Blood Count 27.5 T/CUMM (4-12)
[2022-02-18 05:55] LABS: Lymphocytes 2 % (20-55); Microcytosis 1+; Ovalocytes Slight; Platelet Estimate Adequate; Total Cells Counted 100
[2022-02-18] MEDS ORDERED: predniSONE 10 MG TABLET PO SCH (09:00)
[2022-02-18] MEDS: SODIUM BICARBONATE 650 MG TABLET PO SCH (09:05)
[2022-02-18] MEDS: FINASTERIDE 5 MG TABLET PO SCH (09:05)
[2022-02-18] MEDS: MAGNESIUM CHLORIDE 64 MG TABLET PO SCH (09:05)
[2022-02-18] MEDS: cloNIDine 0.1 MG TABLET PO SCH (09:05)
[2022-02-18] MEDS: SILDENAFIL 20 MG TABLET PO SCH (09:06)
[2022-02-18] MEDS: TAMSULOSIN 0.4 MG CAPSULE PO SCH (09:06)
[2022-02-18] MEDS: amLODIPine 2.5 MG TABLET PO SCH (09:06)
[2022-02-18] MEDS: PANTOPRAZOLE 40 MG TABLET PO SCH (09:06)
[2022-02-18] MEDS: ASPIRIN EC 81 MG TABLET PO SCH (09:06)
[2022-02-18] MEDS: FERROUS SULFATE 325 MG TABLET PO SCH (09:06)
[2022-02-18] MEDS: ACETAMINOPHEN 325 MG TABLET PO PRN (09:09)
[2022-02-18] MEDS: FLUTICASONE 50 MCG NASAL SPRAY 16 GM BOTTLE BOTH NARES SCH (09:10)
[2022-02-18 11:44] VITALS: BP 119/50
== END 2022-02-18 12:09 | disposition hospice, home (50) | DRG 177 ==
LOC: N.5E 14:09
PROVIDERS: ADMIT Internal Medicine; ATTEND Internal Medicine